=== PATIENT | female | born 1955 | race African-American/Black ===

== ENCOUNTER 2020-03-04 08:25 | Emergency (ER) | payer MEDICARE, OTHER, SELFPAY ==
[2020-03-04 08:40] VITALS: BP 140/85; PULSE 58; RESP 16; TEMP 35.6; O2SAT 100
--- NOTE | 2020-03-04 09:05 | ED.EAR ---
HPI - Ear Problem General Chief complaint: Ear Stated complaint: bilateral ear pain Time Seen by Provider: 03/04/20 08:50 Source: patient and RN notes reviewed Mode of arrival: ambulatory Limitations: no limitations History of Present Illness HPI Narrative: 63 year old female who presents to [facility] care with complaints of bilateral ear pain for the past week. Patient states that her left ear is the worse but both ears hurt inside and out. Patient denies any fever, chills or sweats states that she has been routinely checking her temperature since COVID started, no sinus drainage or stuffy nose, some intermittent headaches, rare sore throat stated. patient stated she thought that initially it was from ear wax so she tried some home remedies and then she put some ear wax removal drops in her ears on Saturday with no improvement in discomfort.Patient denies any bloody drainage from her ears, some yellowish drainage noted from her ears which is attributed to ear wax removal drops. Patient states no decrease in her hearing or any incidence of dizziness. MD Complaint: ear pain and ear discharge Location: bilateral Duration: constant Severity: moderate Relieving factors: ear drops Exacerbating factors: palpation Discharge from ear: Reports yes - clear (clear to light yellow) Associated symptoms ear: external ear tenderness and ear swelling Treatment prior to arrival: eardrops Related Data Home Medications Medication Instructions Recorded Confirmed amlodipine 5 mg PO DAILY 03/04/20 03/04/20 levothyroxine 50 mcg PO DAILY 03/04/20 03/04/20 nebivolol [Bystolic] 10 mg PO DAILY 03/04/20 03/04/20 rosuvastatin 10 mg PO DAILY 03/04/20 03/04/20 Allergies Allergy/AdvReac Type Severity Reaction Status Date / Time codeine Allergy Intermediate ANXIOUS Verified 03/04/20 08:46 AND NERVOUS Review of Systems Review of Systems: Narrative: CONSTITUTIONAL: Denies fever, chills, or sweats. EYES: Denies visual changes, redness, or discharge. ENT: Denies rhinorrhea, congestion,occasional sore throat, bilateral otalgia. CARDIOVASCULAR: Denies chest pain, palpitations, or edema. RESPIRATORY: Denies cough or dyspnea. GASTROINTESTINAL: Denies abdominal pain, nausea, vomiting, or diarrhea. GENITOURINARY: Denies dysuria or hematuria. SKIN: Denies rash or itching. MUSCULOSKELETAL: Denies back pain, joint pain, or myalgia. NEUROLOGIC: Denies headache, numbness, or weakness. PSYCHIATRIC: Denies anxiety or depression. All systems reviewed & are unremarkable except as noted in HPI and below PMFSH Past Medical History Medical History (Updated 03/04/20 @ 09:54 by Connie Bolanos NP) Anxiety and depression Arthritis GERD (gastroesophageal reflux disease) Hyperlipidemia Hypertension Hypothyroidism Sleep apnea Surgical History Surgical History (Updated 03/04/20 @ 09:53 by Connie Bolanos NP) H/O tubal ligation H/O: section History of total left knee replacement (TKR) History of total right knee replacement (TKR) Hx of cholecystectomy Hx of gastric bypass Hx of tonsillectomy Family History Family History Mother Hypertension Family history of mental disorder Family history of glaucoma Family history of arthritis Sibling Hypertension Family history of diabetes mellitus in first degree relative Family history of alcoholism Family history of liver disease Father Family history of malignant neoplasm Family history of lung cancer, Onset Age: 67 Other Carcinoma of colon Diabetes mellitus Family history of cardiovascular disease Family history of malignant neoplasm of cervix Family history of malignant neoplasm of male breast Family history of primary malignant neoplasm of liver Social History Social History (Updated 03/04/20 @ 09:45 by Connie Bolanos NP) Smoking status: Never smoker Alcohol intake: never Living arrangements: with family Gender id
--- NOTE | 2020-03-04 10:04 | PC.NURSE ---
called and requested rx to [facility]. stated initial pharmacy would not take insurance. aware field reimbursement manager will call in rx to requested pharmacy.
== END 2020-03-04 09:23 | disposition home or self-care (01) ==
PROVIDERS: Emergency Provider Registered Nurse
DX: H60.393 Other infective otitis externa, bilateral (principal); H65.02 Acute serous otitis media, left ear; M19.90 Unspecified osteoarthritis, unspecified site; K21.9 Gastro-esophageal reflux disease without esophagitis; E78.5 Hyperlipidemia, unspecified; I10 Essential (primary) hypertension; E03.9 Hypothyroidism, unspecified; G47.30 Sleep apnea, unspecified; Z96.653 Presence of artificial knee joint, bilateral; Z98.84 Bariatric surgery status
CPT/HCPCS: 99213; G0463

== ENCOUNTER 2024-04-11 09:09 | Outpatient (CLI) | payer MEDICARE, OTHER, SELFPAY ==
--- NOTE | ~2024-04-11 | US_ITS ---
EXAMINATION: US pelvic complete DATE: 04/11/2024 09:38 INDICATION: Leiomyoma of uterus, unspecified TECHNIQUE: Multiple transabdominal and endovaginal sonographic images of the pelvis were obtained. COMPARISON: CT abdomen pelvis 05/15/2013 FINDINGS: Uterus: 14.3 x 6.4 x 7.7 cm. Multiple hypoechoic masses, largest measuring 5.7 cm. Endometrial comple x partially obscured measures 3 mm. Right Ovary: Not visualized. Left Ovary: 2.8 x 1.2 x 2.6 cm. Vascular flow is present. No adnexal mass There is no free fluid in the pelvis. IMPRESSION: Uterine fibroids. Right ovary not visualized. Reviewed, dictated and finalized at location K.
== END 2024-04-11 09:10 | disposition home or self-care (01) ==
PROVIDERS: PCP Nurse Practitioner Women's Health; Visit Provider Nurse Practitioner Women's Health
DX: D25.9 Leiomyoma of uterus, unspecified (principal); R10.32 Left lower quadrant pain
CPT/HCPCS: 76856

== ENCOUNTER 2024-10-13 10:17 | Outpatient (CLI) | payer MEDICARE, OTHER, SELFPAY ==
--- OUTSIDE RECORDS SUMMARY | 2024-10-13 11:06 | XMS_ITS | Clinical Summary ---
Author Organization [facility] Address [address] [place] [address] Care Team Providers Care Starcher And Tenter Range Feeder Name Role Phone Deepika Connors MD Primary Care Provider [phone] [facility],non[facility] Affiliates and Associated Physician Practices is amultiple site organization consisting of ambulatory clinics and hospital sitesin [place], [place], [place] and [place]. This disclosure is being madepursuant to the Care Everywhere program and may not contain all information available regarding this patient. Last updated 18.[facility] Allergies Active Allergy Reactions Criticality Noted Date Comments Codeine Other 02/08/2024 tachycardia Social History Tobacco Use Types Packs/Day Years Used Date Smoking Tobacco: Never Assessed Comments Unknown Sex and Gender Information Value Date Recorded Sex Assigned at Not on file Legal Sex Female 7:59 PM REJECT OPENER Gender Identity Not on file Sexual Orientation Not on file Last Filed Vital Signs Vital Sign Reading Time Taken Comments Blood Pressure 154/83 02/08/2024 5:23 PM CDT Pulse 65 02/08/2024 5:23 PM CDT Temperature 36.7 C (98.1 F) 02/08/2024 6:28 PM CDT Respiratory Rate 18 02/08/2024 5:23 PM CDT Oxygen Saturation 99% 02/08/2024 5:23 PM CDT Inhaled Oxygen Concentration - - Weight 137 kg (302 lb) 02/08/2024 5:23 PM CDT Height 170.2 cm (5' 7 ) 02/08/2024 5:23 PM CDT Body Mass Index 47.3 02/08/2024 5:23 PM CDT Plan of Treatment Health Maintenance Due Date Last Done Comments COLOGUARD (AGES 45-75) - COLON CA SCREENING 1953 COLON MONITORING 1953 COLONOSCOPY - COLON CA SCREENING 1953 CT COLONOGRAPHY - COLON CA SCREENING 1953 Colorectal Cancer Screening 1953 FIT - COLON CA SCREENING 1953 FLEX SIG - COLON CA SCREENING 1953 MEDICARE AWV 12 MONTHS 1953 DTAP/TDAP/TD VACCINES (1 - Tdap) 1972 PNEUMOCOCCAL VACCINE 50+ (1 of 1 - PCV) 11/03/2003 ZOSTER VACCINE (1 of 2) 11/03/2003 Respiratory Syncytial Virus (RSV) Vaccine Pt: or over 60 yrs (1 - Risk 60-74 years 1-dose series) 2013 COVID-19 VACCINE ( season) 2024 09/07/2020, 08/10/2020 DEPRESSION SCREENING 07/01/2024 INFLUENZA VACCINE (Season Ended) 2025 04/12/2022, 04/22/2021, 04/04/2020, Additional history exists MAMMOGRAM 01/20/2026 01/21/2024, 12/30, 12/17/2022, Additional history exists LIPID TESTING 01/21/2029 01/22/2024 BONE DENSITY TESTING Completed 11/12/2023 HEPATITIS C SCREENING Completed 01/22/2024 HEPATITIS B VACCINE Aged Out No longe r eligible based on patient's age to complete this topic HIB VACCINE Aged Out No longer eligi ble based on patient's age to complete this topic HPV VACCINE Aged Out No longer eligi ble based on patient's age to complete this topic MENINGOCOCCAL (Group B) VACCINE SHARED DECISION-MAKING Aged Out No longer eligible based on patient's age to complete this topic MENINGOCOCCAL GROUPS A/C/Y/W VACCINE Aged Out No longer eligible based on patient's age to complete this topic Insurance MEDICARE [facility] Care Teams Starcher And Tenter Range Feeder Relationship Specialty Start Date End Date Deepika Connors MD [address] [place] [address] PCP - General Family Medicine 02/08/24
--- OUTSIDE RECORDS SUMMARY | 2024-10-13 11:06 | XMS_ITS | Encounter Summary ---
Author Organization [facility] Address [address] [place] [address] Care Team Providers Care Fabric And Textile Factory Worker Name Role Phone Deepika Connors MD Primary Care Provider [phone] Christian Talbot MD Unavailable [phone] Encounter Details Date Type Department Care Team (Latest Contact Info) Description 02/11/2018 Abstract [facility] , Sharon Harrison MD Social History Tobacco Use Types Packs/Day Years Used Date Smoking Tobacco: Never Smokeless Tobacco: Never Alcohol Use Standard Drinks/Week Comments No 0 (1 standard drink = 0.6 oz pur e alcohol) Comments Unknown Sex and Gender Information Value Date Recorded Sex Assigned at Female 07/21/2024 11:09 AM LION TRAINER Legal Sex Female 9:55 AM CDT Gender Identity Female 09/05/2021 11:16 AM LION TRAINER Sexual Orientation Straight 09/05/2021 11 :16 AM LION TRAINER documented as of this encounter Plan of Treatment Upcoming Encounters Date Type Department Care Team (Late st Contact Info) Description 2024 9:40 AM CDT Laboratory Only [facility] Family Medicine [address] [place] [phone] Deepika Connors MD [facility] [place] [address] 11/09/2024 10:00 AM CDT Office Visit [facility] Family Medicine - [place] [address] [place] [address] Deepika Connors MD [address] [place] [address] 01/19/2025 8:45 AM CDT Office Visit [facility] [address] [place] [address] Christian Talbot MD [address] [facility] [place] [address] documented as of this encounter Visit Diagnoses Not on filedocumented in this encounter Additional Health Concerns Infection Onset Date Last Indicated Resolved Time COVID-19 Rule Out 07/22/2020 07/22/2020 07/24/2020 3:20 AM LION TRAINER COVID-19 Rule Out 07/07/2021 07/07/2021 07/10/2021 2:50 PM LION TRAINER COVID-19 Confirmed 07/07/2021 07/07/2021 12:32 AM LION TRAINER documented as of this encounter Care Teams Fabric And Textile Factory Worker Relationship Specialty Start Date End Date Deepika Connors MD [facility] [place] [address] PCP - General FAMILY PRACTICE 01/09/18 Christian Talbot MD [facility]. [address] [place] [address] [place] Vice President Corporate Communications CARDIOVASCULAR DISEASE 01/09/18 documented as of this encounter
--- OUTSIDE RECORDS SUMMARY | 2024-10-13 11:06 | XMS_ITS | Encounter Summary ---
Author Organization [facility] Address [address] [place] [address] Care Team Providers Care Substation Maintenance Technician Name Role Phone Deepika Connors MD Primary Care Provider Christian Talbot MD Unavailable [phone] Encounter Details Date Type Department Care Team (Latest Contact Info) Description 03/14/2018 Abstract [facility] , Sharon Harrison MD Social History Tobacco Use Types Packs/Day Years Used Date Smoking Tobacco: Never Smokeless Tobacco: Never Alcohol Use Standard Drinks/Week Comments No 0 (1 standard drink = 0.6 oz pur e alcohol) Comments Unknown Sex and Gender Information Value Date Recorded Sex Assigned at Female 07/21/2024 11:09 AM CAPTAIN WAITER/WAITRESS Legal Sex Female 9:55 AM CDT Gender Identity Female 09/05/2021 11:16 AM CAPTAIN WAITER/WAITRESS Sexual Orientation Straight 09/05/2021 11 :16 AM CAPTAIN WAITER/WAITRESS documented as of this encounter Plan of Treatment Upcoming Encounters Date Type Department Care Team (Late st Contact Info) Description 2024 9:40 AM CDT Laboratory Only [facility] Family Medicine [address] [place] [place] [phone] Deepika Connors MD [facility] [place] [address] 11/09/2024 10:00 AM CDT Office Visit [facility] Family Medicine - [place] [address] [place] [address] Deepika Connors MD [address] [place] [address] 01/19/2025 8:45 AM CDT Office Visit [facility] [address] [place] [address] Christian Talbot MD [address] [facility] [address] [place] [address] documented as of this encounter Visit Diagnoses Not on filedocumented in this encounter Additional Health Concerns Infection Onset Date Last Indicated Resolved Time COVID-19 Rule Out 07/22/2020 07/22/2020 07/24/2020 3:20 AM CAPTAIN WAITER/WAITRESS COVID-19 Rule Out 07/07/2021 07/07/2021 07/10/2021 2:50 PM CAPTAIN WAITER/WAITRESS COVID-19 Confirmed 07/07/2021 07/07/2021 12:32 AM CAPTAIN WAITER/WAITRESS documented as of this encounter Care Teams Substation Maintenance Technician Relationship Specialty Start Date End Date Deepika Connors MD [facility] [place] [address] PCP - General FAMILY PRACTICE 01/09/18 Christian Talbot MD [facility]. [address] [place] [address] [place] Crane Operator CARDIOVASCULAR DISEASE 01/09/18 documented as of this encounter
--- OUTSIDE RECORDS SUMMARY | 2024-10-13 11:06 | XMS_ITS | Clinical Summary ---
Author Organization [facility] Address [facility] [place] [address] Care Team Providers Care Food Service Attendant Name Role Phone Deepika Connors MD Primary Care Provider [phone] Christian Talbot MD Unavailable [phone] Allergies Active Allergy Reactions Criticality Noted Date Comments Codeine Unknown 05/30/2022 Palpitations, increased HR and shakiness Medications Cholecalciferol (VITAMIN D-3) 5000 units Tab Take 1 tablet (5,000 Units total) by mouth daily. 30 tablet 018 Active Multiple Vitamin (DAILY VITAMIN) Tab Take 1 tablet by mouth daily. 018 Active aspirin EC 81 MG EC tablet Take 1 tablet (81 mg total) by mouth daily. 018 Active magnesium 250 MG tablet Take 1 tablet (250 mg total) by mouth daily. 020 Active omeprazole (PRILOSEC) 20 MG capsuleIndication s:Gastroesophagea l reflux disease without esophagitis Take 2 capsules (40 mg total) by mouth daily. 024 Active Additional Information Patient taking differently: 20 mgOral Daily,Will take another if needed, Reported on 08/10/2024 levothyroxine (SYNTHROID) 50 MCG tabletIndications :Hypothyroidism, unspecified type TAKE 1 TABLET(50 MCG) BY MOUTH EVERY MORNING 90 tablet 2 Active irbesartan (AVAPRO) 300 MG tabletIndications :Primary hypertension Take 1 tablet (300 mg total) by mouth daily. 90 tablet 2 024 Active citalopram (CELEXA) 20 MG tabletIndications :Mild major depression TAKE 1 TABLET(20 MG) BY MOUTH DAILY 90 tablet 1 024 Active amLODIPine (NORVASC) 10 MG tabletIndications :Primary hypertension TAKE 1 TABLET(10 MG) BY MOUTH DAILY 90 tablet 1 025 Active rosuvastatin (CRESTOR) 10 MG tabletIndications :Hyperlipidemia, unspecified hyperlipidemia type TAKE 1 TABLET BY MOUTH DAILY BEFORE A MEAL 90 tablet 1 025 Active carvedilol (COREG) 12.5 MG tablet TAKE 1 TABLET(12.5 MG) BY MOUTH TWICE DAILY 180 tablet 1 025 Active WEGOVY 1.7 mg/dose injection (PEN)Indications: Morbid obesity with BMI of 45.0-49.9, adult ([facility]),Prediab etes INJECT 1.7 MG UNDER THE SKIN ONCE A WEEK FOR WEIGHT LOSS 3 mL 2 025 Active rosuvastatin (CRESTOR) 10 MG tabletIndications :Hyperlipidemia, unspecified hyperlipidemia type TAKE 1 TABLET BY MOUTH DAILY BEFORE A MEAL 90 tablet 1 024 2024 Discontinued carvedilol (COREG) 12.5 MG tablet TAKE 1 TABLET(12.5 MG) BY MOUTH TWICE DAILY 180 tablet 1 024 2024 Discontinued semaglutide-weigh t management (WEGOVY) 1.7 mg/dose injection (PEN)Indications: Weight Loss Inject 1.7 mg into the skin once a week. Indications: Weight Loss 3 mL 2 025 2024 Discontinued Active Problems Problem Noted Date Diagnosed Date Morbid (severe) obesity due to excess calories 0 10/10/2022 Syncope 05/30/2022 Body mass index (BMI) 50.0-59.9, adult 2 Adhesive capsulitis of right shoulder 08/04/2019 PELON (obstructive sleep apnea) 02/09/2019 BRIDGES (dyspnea on exertion) 02/09/2019 Second hand tobacco smoke exposure 02/09/2019 Abdominal pain 04/22/2018 Sinus bradycardia 01/30/2018 Anxiety 01/08/2018 Thyroid activity decreased 01/07/2018 HLD (hyperlipidemia) 12/29/2017 GERD (gastroesophageal reflux disease) 8 Arthritis 12/25/2017 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 Hyperglycemia 10/13/2015 History of bariatric surgery 06/27/2015 Malabsorption (HHS/HCC) 06/27/2015 Weight gain 06/27/2015 Obesity 03/26/2011 Left sided chest pain Palpitations Dizziness Dyslipidemia Essential hypertension Resolved Problems Problem Noted Date Diagnosed Date Resolved Date Breast cancer screening 04/22/201803/01 Never smoked tobacco 03/29/2011 020 Encounters Date Type Department Care Team Description 08/10/2024 11:00 AM SUBCONTRACT ADMINISTRATOR Office Visit [address] [address] Deepika Connors MD Prediabetes; Hypertension; Obesity 08/10/2024 Travel 08/03/2024 9:00 AM SUBCONTRACT ADMINISTRATOR Laboratory Only [address] [address] Deepika Connors MD 08/03/2024 Travel 07/28/[address] [address] Deepika Connors MD Refill Request 07/21/2024 11:30 AM SUBCONTRACT ADMINISTRATOR Office Visit [facility] [address] [address] Liset Guy, DERMATOLOGY TECHNICIAN-C Hypertension (6mo) 07/21/2024 Travel from Last 3 Months Immunizations Immunization Administration Dates Next Due Fluzone 6 Months+ Quad (0.5 mL Prefilled Syringe) 04/04/2020,04/01/2019 Fluzone High Dose (IIV, trivalent, 0.5mL) 2023 Fluzone High Dose - >Age 65 (Prefilled Syringe) 03/30/2023,04/12/2022 Influenza (Generic) 04/16/2018,04/30/2017 Influenza Adult (Generic) 04/12/2022,04/22/2021, 04/16/2018 MODERNA COVID-19 (12+) MRNA, LNP-S, PF, 100 MCG/ 0.5 ML DOSE 09/07/2020,08/10/2020 PFIZER COVID-19 (12+) MRNA, LNP-S, PF, EMIGDIO-SUCROSE, 30 MCG/0.3 ML (COMIRNATY) 04/15/2024 Pneumococcal (Pneumovax 23) 04/04/2020 Pneumococcal (Prevnar 13) 04/01/2019 Shingrix 07/02/2022,05/01/2022 Tdap (Generic) 04/20/2022 Family History Medical History Relation Comments Heart Disease Father Decedes Lung Cancer Father Breast Cancer Mother Heart Disease Mother None Hypertension Mother Diabetes Sister Decedes Hypertension Sister Relation Status Comments Father (Age 67) Mother Alive Sister Social History Tobacco Use Types Packs/Day Years Used Date Smoking Tobacco: Never Smokeless Tobacco: Never Tobacco Cessation:Counseling Given: No Alcohol Use Standard Drinks/Week Comments Never 0 (1 standard drink = 0.6 oz pur e alcohol) PHQ-2 Answer Date Recorded Patient Health Questionnaire-2 Score 1 08/10/2024 Comments No Sex and Gender Information Value Date Recorded Sex Assigned at Female 07/21/2024 11:09 AM SUBCONTRACT ADMINISTRATOR Legal Sex Female 9:55 AM CDT Gender Identity Female 09/05/2021 11:16 AM SUBCONTRACT ADMINISTRATOR Sexual Orientation Straight 09/05/2021 11 :16 AM SUBCONTRACT ADMINISTRATOR Last Filed Vital Signs Vital Sign Reading Time Taken Comments Blood Pressure 130/72 08/10/2024 11:[address] Vásquez manual read Pulse 76 08/10/2024 11:02 AM SUBCONTRACT ADMINISTRATOR Temperature 36.6 C (97.9 F) 08/10/2024 11:02 AM SUBCONTRACT ADMINISTRATOR Respiratory Rate 24 08/10/2024 11:0 2 AM SUBCONTRACT ADMINISTRATOR Oxygen Saturation 98% 08/10/2024 11: 02 AM SUBCONTRACT ADMINISTRATOR Inhaled Oxygen Concentration - - Weight 133.6 kg (294 lb 9.6 oz) 08/10/2024 11:02 AM SUBCONTRACT ADMINISTRATOR Height 170.2 cm (5' 7 ) 08/10/2024 11:0 2 AM SUBCONTRACT ADMINISTRATOR verbal Body Mass Index 46.14 08/10/2024 11:02 AM SUBCONTRACT ADMINISTRATOR Plan of Treatment Upcoming Encounters Date Type Department Care Team (Late st Contact Info) Description 2024 9:40 AM CDT Laboratory Only [id number] [place] [address] Deepika Connors MD [address] [place], [place] [id number] 11/09/2024 10:00 AM CDT Office Visit [facility] [address] [place] [address] Deepika Connors MD [facility] [place] [address] 01/19/2025 8:45 AM CDT Office Visit [facility] [address] [place] [address] Christian Talbot MD [facility]. [facility] [address] [place] [address] Health Maintenance Due Date Last Done Comments RSV Immunization or 60+ Years (1 - Risk 60-74 years 1-dose series) 2013 Annual Medicare Wellness Visit 2018 COVID-19 Vaccine ( season) 2024 04/15/2024, 03/30/2023, 04/20/2022, Additional history exists Mammogram Screening 01/20/2026 01/21/2024, 12/17/2022, 10/17/2021 Colorectal Cancer Screening Colonoscopy (10 Years) 10/29/2028 10/29/2018, 10/29/2018, 10/29/2018 DTaP, Tdap and Td Vaccines (2 - Td or Tdap) 04/20/2032 04/20/2022 Pneumococcal Vaccine: 50+ Years Completed 04/04/2020, 04/01/2019 Zoster Vaccines Completed 07/02/2022, 05/01/2022 Dexa Scan (General) Completed 11/12/2023 Hepatitis C Completed 01/22/2024 PHQ-2 (Physician Cameron) Completed 08/10/2024 Meningococcal B Vaccine Aged Out No l onger eligible based on patient's age to complete this topic Meningococcal Vaccine Aged Out No tyrone paula eligible based on patient's age to complete this topic RSV Immunizations Under 20 Months Aged Out No longer eligible based on patient's age to complete this topic Medical Devices Implanted Type Area Inbound Call Center Representative Device Identifier Shelf Expiration Date Model / Serial / Lot Sj Implantable Loop Recorder- [id number] Implanted:08/2017 by Baron Campbell MD (Quantity not on file) Explanted:Qty: 1 on 10/29/2019 by Baron Campbell MD Implantable Loop Recorder [employer] [facility] [employer] [id number] / [id number] / Procedures Procedure Name Priority Date/Time Associated Diagnosis Comments HEMOGLOBIN, GLYCOSYLATED Routine 08/10/2024 Prediabetes COLLECT.CAPILLARY (FNGR,HEEL,EAR) Routine 08/10/2024 Prediabetes COMPREHENSIVE METABOLIC PANEL Routine 08/03/2024 8:49 AM SUBCONTRACT ADMINISTRATOR Primary hypertension Hyperlipidemia, unspecified hyperlipidemia type LIPID PANEL Routine 08/03/2024 8:49 AM SUBCONTRACT ADMINISTRATOR Hyperlipidemia, unspecified hyperlipidemia type TSH W/REFLEX Routine 08/03/2024 8:49 AM SUBCONTRACT ADMINISTRATOR Hyperlipidemia, unspecified hyperlipidemia type Hypothyroidism, unspecified type COLLECTION VENOUS BLOOD VENIPUNCTURE Routine 08/03/2024 Routine general medical examination at a health care facility HEPATITIS C ANTIBODY Routine 01/22/2024 8:54 AM CDT Encounter for hepatitis C screening test for low risk patient MG SCREENING W DIANE TIARRA DIGI Routine 01/21/2024 2:48 PM CDT Screening mammogram, encounter for BONE DENSITY/DEXA Routine 11/12/2023 9:2 4 AM CDT Postmenopausal COLONOSCOPY Routine 10/29/2018 9:11 AM CDT from Last 3 Months or Most Recently Relevant to Health Maintenance Results * A1C (BACK OFFICE) (08/10/2024) HGB A1C 5.7 % [facility] 08/10/2024 us Deepika Connors MD LABORATORY Final Result Performing Organization Address City/[facility]/ZIP Co de Phone Number [facility] [address] [place] [address], [place] [phone] * COLLECT.CAPILLARY (FNGR,HEEL,EAR) (08/10/2024) us Deepika Connors MD PROCEDURES-UNRESULTED Final Resu lt Performing Organization Address City/[facility]/ZIP Co de Phone Number [facility] * TSH W/REFLEX (08/03/2024 8:49 AM SUBCONTRACT ADMINISTRATOR) TSH 2.233 0.358 - 3.740 uIU/ML 08/03/2024 4:17 PM SUBCONTRACT ADMINISTRATOR [facility] 08/03/2024 8:49 AM SUBCONTRACT ADMINISTRATOR us Deepika Connors MD LABORATORY Final Result Performing Organization Address [facility] Co de Phone Number [facility] [address] [place] [address], [place] [phone] * (ABNORMAL) COMPREHENSIVE METABOLIC PANEL (08/03/2024 8:49 AM SUBCONTRACT ADMINISTRATOR) SODIUM S/P/B 144 136 - 145 MMOL/L 08/03/2024 4:17 PM SUBCONTRACT ADMINISTRATOR [facility] POTASSIUM S/P/B 3.5 3.5 - 5.1 MMOL/L 08/03/2024 4:17 PM SUBCONTRACT ADMINISTRATOR [facility] CHLORIDE S/P/B 106 98 - 107 MMOL/L 08/03/2024 4:17 PM SUBCONTRACT ADMINISTRATOR [facility] CO2 28.9 21 - 32 MMOL/L 08/03/2024 4:17 PM [facility] GLUCOSE 92 70 - 99 MG/DL 08/03/2024 4:17 PM [facility] BUN 15 7 - 18 MG/DL 08/03/2024 4:17 PM [facility] CREATININE S/P/B 0.83 0.55 - 1.02 MG/DL 08/03/2024 4:17 PM [facility] CALCIUM S/P/B 8.9 8.4 - 10.5 MG/DL 08/03/2024 4:17 PM [facility] BILIRUBIN TOTAL S/P/B 0.4 0.2 - 1.0 MG/DL 08/03/2024 4:17 PM [facility] ALKALINE PHOSPHATASE S/P/B 85 55 - 142 U/L 08/03/2024 4:17 PM [facility] AST 21 15 - 37 U/L 08/03/2024 4:17 PM [facility] ALT 21 14 - 59 U/L 08/03/2024 4:17 PM [facility] TOTAL PROTEIN S/P/B 6.7 6.4 - 8.2 G/DL 08/03/2024 4:17 PM [facility] ALBUMIN S/P/B 3.5 3.4 - 5.0 G/DL 08/03/2024 4:17 PM [facility] ANION GAP 9.1 5 - 15 MMOL/L 08/03/2024 4:17 PM [facility] Comment:REFERENCE RANGE NOT ESTABLISHED OSMOLALITY (CALC) 298 MOSM/KG 025 4:17 PM [facility] Comment:REFERENCE RANGE NOT ESTABLISHED GFR ESTIMATE 76(L) >90 ML/MIN/1. 73 M2 08/03/2024 4:17 PM [facility] GFR NOTES GFR REFERENCE S: 08/03/2024 4:17 PM [facility] Comment: THE ESTIMATED GFR IS CALCULATED USING THE 2020 CKD-EPI EQUATION. THE FOLLOWING CATEGORIES FOR GRADING RENAL FUNCTION ARE RECOMMENDED BY THE INTERNATIONAL SOCIETY OF NEPHROLOGY (KDIGO 2012 CLINICAL PRACTICE GUIDELINE). G1,NORMAL OR HIGH: >89 ml/min/1.73 m2 G2,MILDLY DECREASED: 60-89 ml/min/1.73 m2 G3A,MILDLY TO MODERATELY DECREASED: 45-59 ml/min/1.73 m2 G3B,MODERATELY TO SEVERELY DECREASED: 30-44 ml/min/1.73 m2 G4,SEVERELY DECREASED: 15-29 ml/min/1.73 m2 G5,KIDNEY FAILURE: <15 ml/min/1.73 m2 08/03/2024 8:49 AM SUBCONTRACT ADMINISTRATOR us Deepika Connors MD LABORATORY Final Result [facility] [address] [place] [address], * (ABNORMAL) LIPID PANEL (08/03/2024 8:49 AM SUBCONTRACT ADMINISTRATOR) CHOLESTEROL 129 <200 MG/DL 08/03/2024 4:17 PM [facility] TRIGLYCERIDES 43 <150 MG/DL 08/03/2024 4:17 PM [facility] HDL 85 >40 MG/DL 08/03/2024 4:17 PM [facility] LDL-C 35 <100 MG/DL 08/03/2024 4:17 PM [facility] VLDL CALCULATION 9 5 - 28 MG/DL 08/03/2024 4:17 PM [facility] CHOL/HDL RATIO 1.5 0.0 - 4.0 08/03/2024 4:17 PM [facility] LDL/HDL 0.4(L) 0.41 - 2.13 08/03/2024 4:17 PM [facility] NON HDL CHOLESTEROL 44 <140 MG/DL 08/03/2024 4:17 PM SUBCONTRACT ADMINISTRATOR [facility] 08/03/2024 8:49 AM SUBCONTRACT ADMINISTRATOR us Deepika Connors MD LABORATORY Final Result Performing Organization Address City/[facility] Co de Phone Number [facility] [address] [place] [address], [place] [phone] * COLLECTION VENOUS BLOOD VENIPUNCTURE (08/03/2024) us Deepika Connors MD PROCEDURES Final Result * HEPATITIS C ANTIBODY (01/22/2024 8:54 AM CDT) HEPATITIS C AB NON-REACTI VE NON-REACT MAHNAZ 01/22/2024 10:14 PM CDT [facility] Comment: ANTIBODIES TO HCV NOT DETECTED. DOES NOT EXCLUDE THE POSSIBILITY OF EXPOSURE TO HCV. 01/22/2024 8:54 AM CDT us Deepika Connors MD LABORATORY Final Result Performing Organization Address City/[facility] Co de Phone Number [facility] [address] [place] [address], [phone] * MG SCREENING W DIANE TIARRA DIGI (01/21/2024 2:48 PM CDT) Anatomical Region Laterality Modality Breast Bilateral Mammography 01/21/2024 4:08 PM CDT Impressions 01/21/2024 4:11 PM CDT ===== IMPRESSION: ===== 1. Stable mammographic appearance with no new findings to suggest malignancy in either breast. Assessment: ACR BI-RADS 2 - BENIGN FINDING(S) Recommendation: 1:Routine Screening Bilateral Comments: Ordered By: DEEPIKA CONNORS Interpreted By: Ketty Barrios, 01/21/2024 4:08 PM Narrative 01/21/2024 4:11 PM CDT EXAMINATION: Digital bilateral screening mammogram with 3-D tomosynthesis EXAM DATE/TIME: 01/21/2024 2:32 PM REASON FOR EXAM: Routine screening Mother with breast carcinoma age 85. COMPARISON: 10/17/2021. 12/17/2022 Technique: Digital screening mammography of both breasts was performed in addition to 3-D Tomosynthesis technique. This study was read with the assistance of a computer-aided detection system. Tissue density: There are scattered areas of fibroglandular density. Findings: There is no new focal asymmetry, dominant mass lesion, area of skin thickening, or cluster of suspicious appearing calcifications in either breast to suggest malignancy. us Deepika Connors MD MAMMO Final Result * BONE DENSITY/DEXA (11/12/2023 9:24 AM CDT) Anatomical Region Laterality Modality Bone Mammography 11/12/2023 8:24 PM CDT Impressions 11/12/2023 8:27 PM CDT IMPRESSION:===== The patient bone mineral density is Normal according to the World Health Organization (WHO) criteria. Referred By: DEEPIKA CONNORS Interpreted By: Juan Manuel Florence MD, 11/12/2023 8:24 PM Narrative 11/12/2023 8:27 PM CDT EXAMINATION: Bone Density Axial EXAM DATE/TIME: 11/12/2023 9:03 AM REASON FOR EXAM: Postmenopausal status COMPARISON: Although prior DEXA scan 04/09/2014 as listed, and no images or information is available from that study for comparison. FINDINGS: DEXA bone densitometry The bone mineral density (BMD) was determined by dual-energy x-ray absorptiometry, the results are as follows: AP Lumbar Spine L1 through L4 BMD Patient (GM/SQCM): 0.951 T-Score (Standard deviations from young adult peak bone density): -0.9 and a Z- Score of 0.5. osteoarthritis may falsely increase bone mineral density measured in the lumbar spine. Right femoral neck: BMD Patient (GM/SQCM): 0.771 T-Score (Standard deviations from young adult peak bone density): -0.7 and a Z- Score of 0.2. Total right hip: BMD Patient (GM/SQCM): 0.995 T-Score (Standard deviations from young adult peak bone density): 0.4 and a Z- Score of 0.9. 10 year fracture risk using FRAX, fracture risk assessment tool: Major osteoporotic fracture: 4.9 % Hip fracture: 0.5 % ===== Procedure Note Juan Manuel Florence MD - 11/12/2023 EXAMINATION: Bone Density Axial EXAM DATE/TIME: 11/12/2023 9:03 AM REASON FOR EXAM: Postmenopausal status COMPARISON: Although prior DEXA scan 04/09/2014 as listed, and no imagesor information is available from that study for comparison. FINDINGS: DEXA bone densitometry The bone mineral density (BMD) was determined bydual-energy x-ray absorptiometry, the results are as follows: AP Lumbar Spine L1 through L4 BMD Patient (GM/SQCM): 0.951 T-Score (Standard deviations from young adult peak bonedensity): -0.9 and a Z- Score of 0.5. osteoarthritis may falsely increasebone mineral density measured in the lumbar spine. Right femoral neck: BMD Patient (GM/SQCM): 0.771 T-Score (Standard deviations from young adult peak bonedensity): -0.7 and a Z- Score of 0.2. Total right hip: BMD Patient (GM/SQCM): 0.995 T-Score (Standard deviations from young adult peak bonedensity): 0.4 and a Z- Score of 0.9. 10 year fracture risk using FRAX, fracture risk assessment tool: Major osteoporotic fracture: 4.9 % Hip fracture: 0.5 % ===== IMPRESSION:===== The patient bone mineral density is Normal according to the World Health Organization (WHO) criteria. Referred By: DEEPIKA ELLEBY Interpreted By: Juan Manuel Florence MD, 11/12/2023 8:24 PM us Deepika Connors MD DEXA Final Result * COLONOSCOPY (10/29/2018) us Documents Scanned SCANNING Final Result [facility] [address] [address] from Last 3 Months or Most Recently Relevant to Health Maintenance Insurance MEDICARE [facility] MEDICARE [employer] Care Teams Food Service Attendant Relationship Specialty Start Date End Date Deepika Connors MD [address] [place] [address] PCP - General FAMILY PRACTICE 01/09/18 Christian Talbot MD [facility]. [facility] [address] [place] [address] [place] Biology Specimen Technician CARDIOVASCULAR DISEASE 01/09/18
[2024-10-13 11:12] LABS: Alanine Aminotransferase 19 U/L (6-35); Alkaline Phosphatase 81 U/L (38-126); Anion Gap 8 mmol/L (4-12); Aspartate Amino Transferase 36 U/L (14-36); Bilirubin,Total 0.4 mg/dL (0.2-1.3); Blood Urea Nitrogen 10 mg/dL (7-17); Calcium 9.2 mg/dL (8.4-10.2); Carbon Dioxide 28 mmol/L (22-30); Chloride 104 mmol/L (98-107); Estimated Glomerular Filt Rate > 60; Glucose 96 mg/dL (65-110); Potassium 3.9 mmol/L (3.4-5.0); Sodium 140 mmol/L (137-145)
[2024-10-13 11:35] LABS: Free T4 Free Thyroxine 0.76 ng/dL (0.78-2.19)
[2024-10-15 09:28] LABS: Thyroid Peroxidase Antibodies 50 IU/mL (<9)
== END 2024-10-13 10:18 | disposition home or self-care (01) ==
PROVIDERS: PCP Nurse Practitioner Women's Health; Visit Provider Internal Medicine
DX: E78.5 Hyperlipidemia, unspecified (principal); E03.9 Hypothyroidism, unspecified; I10 Essential (primary) hypertension; G47.30 Sleep apnea, unspecified
CPT/HCPCS: 36415; 80053; 82530; 84439; 84443; 86376

== ENCOUNTER 2024-10-26 12:03 | Outpatient (CLI) | payer MEDICARE, OTHER, SELFPAY ==
--- OUTSIDE RECORDS SUMMARY | 2024-10-26 13:56 | XMS_ITS | Encounter Summary ---
Author Organization [facility] Address [address] [place] [address] Care Team Providers Care Redevelopment Specialist Name Role Phone Deepika Connors MD Primary Care Provider [phone] Christian Talbot MD Unavailable [phone] Reason for Visit * Reason Onset Date Comments Lab Draw 10/26/2024 Encounter Details Date Type Department Care Team (Late st Contact Info) Description 10/26/2024 Telephone [facility] Family Medicine [facility] [address] [place] [address] Deepika Connors MD [address] [place] [address] Lab Draw Social History Tobacco Use Types Packs/Day Years Used Date Smoking Tobacco: Never Smokeless Tobacco: Never Alcohol Use Standard Drinks/Week Comments Never 0 (1 standard drink = 0.6 oz pur e alcohol) PHQ-2 Answer Date Recorded Patient Health Questionnaire-2 Score 1 08/10/2024 Comments No Sex and Gender Information Value Date Recorded Sex Assigned at Female 07/21/2024 11:09 AM LICENSED MARINE ENGINEER Legal Sex Female 9:55 AM CDT Gender Identity Female 09/05/2021 11:16 AM LICENSED MARINE ENGINEER Sexual Orientation Straight 09/05/2021 11 :16 AM LICENSED MARINE ENGINEER documented as of this encounter Progress Notes * Ling Muniz MA - 10/26/2024 1:24 PM CDT Called pt to f/u to make sure lab appt and f/u was scheduled * Ling Muniz MA - 10/26/2024 1:23 PM CDT ----- Message from Deepika Connors MD sent at 10/23/2024 12:40 PM CDT ----- ----- Message ----- From: Taisha Vazquez MA Sent: 10/22/2024 2:47 PM CDT To: Deepika Connors MD ----- Message from Taisha Vazquez MA sent at 10/22/2024 2:47 PM CDT ----- ----- Message ----- From: Eleazar Ghosh Sent: 10/22/2024 2:38 PM CDT To: Deepika Cao Nurse ----- Message from Eleazar Ghosh sent at 10/22/2024 2:38 PM CDT ----- documented in this encounter Plan of Treatment Upcoming Encounters Date Type Department Care Team (Late st Contact Info) Description 2024 9:40 AM CDT Laboratory Only [address] [address] Deepika Connors MD [facility] [place] [address] 11/09/2024 10:00 AM CDT Office Visit [address] [place] [address] Deepika Connors MD [facility] [place] [address] 01/19/2025 8:45 AM CDT Office Visit [facility] [address] [place] [address] Christian Talbot MD [facility]. [facility] [address] [place] [address] documented as of this encounter Visit Diagnoses Not on filedocumented in this encounter Additional Health Concerns Assessment Noted Time PHQ-9 Depression Total Score: 2 08/10/19 25 11:01 AM LICENSED MARINE ENGINEER documented as of this encounter Care Teams Redevelopment Specialist Relationship Specialty Start Date End Date Deepika Connors MD [address] [place] [address] PCP - General FAMILY PRACTICE 01/09/18 Christian Talbot MD [facility]. [facility] [address] [place] [address] [facility] CARDIOVASCULAR DISEASE 01/09/18 documented as of this encounter
--- OUTSIDE RECORDS SUMMARY | 2024-10-26 13:56 | XMS_ITS | Encounter Summary ---
Author Organization [facility] Address [address] [place] [address] Care Team Providers Care Awning Assembler Name Role Phone Deepika Connors MD Primary Care Provider [phone] Christian Talbot MD Unavailable [phone] Encounter Details Date Type Department Care Team (Latest Contact Info) Description 03/14/2018 Abstract [facility] , Sharon Harrison MD Social History Tobacco Use Types Packs/Day Years Used Date Smoking Tobacco: Never Smokeless Tobacco: Never Alcohol Use Standard Drinks/Week Comments No 0 (1 standard drink = 0.6 oz pur e alcohol) Comments Unknown Sex and Gender Information Value Date Recorded Sex Assigned at Female 07/21/2024 11:09 AM BEAMER OPERATOR Legal Sex Female 9:55 AM CDT Gender Identity Female 09/05/2021 11:16 AM BEAMER OPERATOR Sexual Orientation Straight 09/05/2021 11 :16 AM BEAMER OPERATOR documented as of this encounter Plan of Treatment Upcoming Encounters Date Type Department Care Team (Late st Contact Info) Description 2024 9:40 AM CDT Laboratory Only [facility] Family Medicine [address] [place] [phone] Deepika Connors MD [facility] [place] [address] 11/09/2024 10:00 AM CDT Office Visit [facility] Family Medicine - [place] [address] [place] [address] Deepika Connors MD [address] [place] [address] 01/19/2025 8:45 AM CDT Office Visit [place] [facility] [address] [facility] [address] [address], [address] [place] [address] Christian Talbot MD [facility] [address] [place] [address] documented as of this encounter Visit Diagnoses Not on filedocumented in this encounter Additional Health Concerns Infection Onset Date Last Indicated Resolved Time COVID-19 Rule Out 07/22/2020 07/22/2020 07/24/2020 3:20 AM BEAMER OPERATOR COVID-19 Rule Out 07/07/2021 07/07/2021 07/10/2021 2:50 PM BEAMER OPERATOR COVID-19 Confirmed 07/07/2021 07/07/2021 12:32 AM BEAMER OPERATOR documented as of this encounter Care Teams Awning Assembler Relationship Specialty Start Date End Date Deepika Connors MD [facility] [place] [address] PCP - General FAMILY PRACTICE 01/09/18 Christian Talbot MD Three [facility]. [address] [place] [address] [place] Shuttlecock Assembler CARDIOVASCULAR DISEASE 01/09/18 documented as of this encounter
--- OUTSIDE RECORDS SUMMARY | 2024-10-26 13:56 | XMS_ITS | Clinical Summary ---
Author Organization [facility] Address [address] [facility] [place] [address] Care Team Providers Care Optical Engineering Manager Name Role Phone Deepika Connors MD Primary Care Provider [phone] Source Comments [facility] Affiliates and Associated Physician Practices is amultiple site organization consisting of ambulatory clinics and hospital sitesin [place], [place] and [place]. This disclosure is being madepursuant to the Care Everywhere program and may not contain all information available regarding this patient. Last updated 18.[facility] Allergies Active Allergy Reactions Criticality Noted Date Comments Codeine Other 02/08/2024 tachycardia Social History Tobacco Use Types Packs/Day Years Used Date Smoking Tobacco: Never Assessed Comments Unknown Sex and Gender Information Value Date Recorded Sex Assigned at Not on file Legal Sex Female 7:59 PM LEATHER PIECE INSPECTOR Gender Identity Not on file Sexual Orientation [...] age to complete this topic Insurance MEDICARE [facility] Care Teams Optical Engineering Manager Relationship Specialty Start Date End Date Deepika Connors MD [address] [place] [address] PCP - General Family Medicine 02/08/24
--- OUTSIDE RECORDS SUMMARY | 2024-10-26 13:56 | XMS_ITS | Encounter Summary ---
Author Organization [facility] Address [address] [place] [address] Care Team Providers Care Responder Name Role Phone Deepika Connors MD Primary Care Provider [phone] Christian Talbot MD Unavailable [phone] Encounter Details Date Type Department Care Team (Latest Contact Info) Description 02/11/2018 Abstract [facility] Medical [facility] , Sharon Harrison MD Social History Tobacco Use Types Packs/Day Years Used Date Smoking Tobacco: Never Smokeless Tobacco: Never Alcohol Use Standard Drinks/Week Comments No 0 (1 standard drink = 0.6 oz pur e alcohol) Comments Unknown Sex and Gender Information Value Date Recorded Sex Assigned at Female 07/21/2024 11:09 AM CHILDREN'S AUTHOR Legal Sex Female 9:55 AM CDT Gender Identity Female 09/05/2021 11:16 AM CHILDREN'S AUTHOR Sexual Orientation Straight 09/05/2021 11 :16 AM CHILDREN'S AUTHOR documented as of this encounter Plan of Treatment Upcoming Encounters Date Type Department Care Team (Late st Contact Info) Description 2024 9:40 AM CDT Laboratory Only [facility] Medical Group Family Medicine [address] [place] [phone] Deepika Connors MD [facility] [place] [address] 11/09/2024 10:00 AM CDT Office Visit [facility] Medical [facility] Family Medicine - [place] [address] [place] [address] Deepika Connors MD [address] [place] [address] 01/19/2025 8:45 AM CDT Office Visit [place] [facility] [address] [facility] [address], [address] [place] [address] Christian Tal[facility] MD [facility] [address] [place] [address] documented as of this encounter Visit Diagnoses Not on filedocumented in this encounter Additional Health Concerns Infection Onset Date Last Indicated Resolved Time COVID-19 Rule Out 07/22/2020 07/22/2020 07/24/2020 3:20 AM CHILDREN'S AUTHOR COVID-19 Rule Out 07/07/2021 07/07/2021 07/10/2021 2:50 PM CHILDREN'S AUTHOR COVID-19 Confirmed 07/07/2021 07/07/2021 12:32 AM CHILDREN'S AUTHOR documented as of this encounter Care Teams Responder Relationship Specialty Start Date End Date Deepika Connors MD [facility] [place] [address] PCP - General FAMILY PRACTICE 01/09/18 Christian Talbot MD Three [facility]. [address] [place] [address] [place] School Examiner CARDIOVASCULAR DISEASE 01/09/18 documented as of this encounter
--- OUTSIDE RECORDS SUMMARY | 2024-10-26 13:56 | XMS_ITS | Encounter Summary ---
Author Organization [facility] Address [address] [place] [address] Care Team Providers Care Tourist Information Assistant Name Role Phone Deepika Connors MD Primary Care Provider [phone] Christian Talbot MD Unavailable [phone] Encounter Details Date Type Department Care Team (Late st Contact Info) Description 10/23/2024 Results Follow-Up [facility] Family Medicine [facility] [address] [place] [address] Deepika Connors MD [address] [place] [address] A1C (BACK OFFICE) Social History Tobacco Use Types Packs/Day Years Used Date Smoking Tobacco: Never Smokeless Tobacco: Never Alcohol Use Standard Drinks/Week Comments Never 0 (1 standard drink = 0.6 oz pur e alcohol) PHQ-2 Answer Date Recorded Patient Health Questionnaire-2 Score 1 08/10/2024 Comments No Sex and Gender Information Value Date Recorded Sex Assigned at Female 07/21/2024 11:09 AM SENIOR SECURITY ARCHITECT Legal Sex Female 9:55 AM CDT Gender Identity Female 09/05/2021 11:16 AM SENIOR SECURITY ARCHITECT Sexual Orientation Straight 09/05/2021 11 :16 AM SENIOR SECURITY ARCHITECT documented as of this encounter Progress Notes * Deepika Connors MD - 10/23/2024 12:30 PM CDT Discussed results with patient and plan going forward in clinic. documented in this encounter Plan of Treatment Upcoming Encounters Date Type Department Care Team (Late st Contact Info) Description 2024 9:40 AM CDT Laboratory Only [address] [address] Deepika Connors MD [address] [place] [phone] 11/09/2024 10:00 AM CDT Office Visit [address] [address] Deepika Connors MD [address] [place] [phone] 01/19/2025 8:45 AM CDT Office Visit [place] [facility] [address] [facility] [address] [place], [place] [phone] Christian Talbot MD [facility] [address] [place], [place] [phone] documented as of this encounter Visit Diagnoses Not on filedocumented in this encounter Additional Health Concerns Assessment Noted Time PHQ-9 Depression Total Score: 2 08/10/19 25 11:01 AM SENIOR SECURITY ARCHITECT documented as of this encounter Care Teams Tourist Information Assistant Relationship Specialty Start Date End Date Deepika Connors MD [address] [place] [address], [place] [phone] PCP - General FAMILY PRACTICE 01/09/18 Christian Talbot MD Three [facility] [address] [place] [address] Yasir Paralegal Instructor CARDIOVASCULAR DISEASE 01/09/18 documented as of this encounter
--- OUTSIDE RECORDS SUMMARY | 2024-10-26 13:56 | XMS_ITS | Clinical Summary ---
Author Organization [facility] Address [facility] [place] [address] Care Team Providers Care Furnace Installer Name Role Phone Deepika Connors MD Primary Care Provider [phone] Christian Talbot MD Unavailable [phone] Allergies Active Allergy Reactions Criticality Noted [...] TWICE DAILY 180 tablet 1 025 Active semaglutide-weigh t management (WEGOVY) 2.4 mg/dose injection (PEN)Indications: Weight Loss Inject 2.4 mg into the skin once a week. Indications: Weight Loss 3 mL 2 025 Active semaglutide-weigh t management (WEGOVY) 1.7 mg/dose injection (PEN)Indications: Weight Loss Inject 1.7 mg into the skin once a week. Indications: Weight Loss 3 mL 2 025 2024 Discontinued WEGOVY 1.7 mg/dose injection (PEN)Indications: Morbid obesity with BMI of 45.0-49.9, adult ([facility]),Prediab etes INJECT 1.7 MG UNDER THE SKIN ONCE A WEEK FOR WEIGHT LOSS 3 mL 2 025 2024 Discontinued Active [...] Encounters Date Type Department Care Team Description 10/26/[address] [address] Deepika Connors MD Lab Draw 10/23/2024 Results Follow-Up [address] [address] Deepika Connors MD A1C (BACK OFFICE) 10/22/[address] [address] Deepika Connors MD Medication 08/10/2024 11:00 AM DRY MOP MAKER Office Visit [address] [address] Deepika Connors MD Prediabetes; Hypertension; Obesity 08/10/2024 Travel 08/03/2024 9:00 AM DRY MOP MAKER Laboratory Only [address] [address] Deepika Connors MD 08/03/2024 Travel 07/28/[address] [address] Deepika Connors MD Refill Request from Last 3 Months Immunizations Immunization Administration [...] Sex Assigned at Female 07/21/2024 11:09 AM DRY MOP MAKER Legal Sex Female 9:55 AM CDT Gender Identity Female 09/05/2021 11:16 AM DRY MOP MAKER Sexual Orientation Straight 09/05/2021 11 :16 AM DRY MOP MAKER Last Filed Vital Signs Vital Sign Reading Time Taken Comments Blood Pressure 130/72 08/10/2024 11:[address] Liang's manual read Pulse 76 08/10/2024 11:02 AM DRY MOP MAKER Temperature 36.6 C (97.9 F) 08/10/2024 11:02 AM DRY MOP MAKER Respiratory Rate 24 08/10/2024 11:0 2 AM DRY MOP MAKER Oxygen Saturation 98% 08/10/2024 11: 02 AM DRY MOP MAKER Inhaled Oxygen Concentration - - Weight 133.6 kg (294 lb 9.6 oz) 08/10/2024 11:02 AM DRY MOP MAKER Height 170.2 cm (5' 7 ) 08/10/2024 11:0 2 AM DRY MOP MAKER verbal Body Mass Index 46.14 08/10/2024 11:02 AM DRY MOP MAKER Plan of Treatment Upcoming Encounters Date Type Department Care Team (Late st Contact Info) Description 2024 9:40 AM CDT Laboratory Only [address] [phone] Deepika Connors MD [address] [place] [address] 11/09/2024 10:00 AM CDT Office Visit [address] [address] Deepika Connors MD [address] [place] [phone] 01/19/2025 8:45 AM CDT Office Visit [place] [facility] THREE [facility] [place] [address] [place], [place] [phone] Christian Talbot MD [facility]. [facility] [address] [place], [place] [phone] Health Maintenance Due Date Last Done Comments [...] 11/12/2023 Hepatitis C Completed 01/22/2024 PHQ-2 (Physician [place]) Completed 08/10/2024 Meningococcal B Vaccine Aged Out No l onger eligible based on patient's age to complete this topic Meningococcal Vaccine Aged Out No tyrone paula eligible based on patient's age to complete this topic RSV Immunizations Under 20 Months Aged Out No longer eligible based on patient's age to complete this topic Medical Devices Implanted Type Area Mainspring Strip Inspector Device Identifier Shelf Expiration Date Model / Serial / Lot Sj Implantable Loop Recorder- [id number] Implanted:08/2017 by Baron Campbell MD (Quantity not on file) Explanted:Qty: 1 on 10/29/2019 by Baron Campbell MD Implantable Loop Recorder [employer] DIV [employer] [id number] / [id number] / Procedures Procedure Name Priority Date/Time Associated Diagnosis Comments HEMOGLOBIN, GLYCOSYLATED Routine 08/10/2024 Prediabetes COLLECT.CAPILLARY (FNGR,HEEL,EAR) Routine 08/10/2024 Prediabetes COMPREHENSIVE METABOLIC PANEL Routine 08/03/2024 8:49 AM DRY MOP MAKER Primary hypertension Hyperlipidemia, unspecified hyperlipidemia type LIPID PANEL Routine 08/03/2024 8:49 AM DRY MOP MAKER Hyperlipidemia, unspecified hyperlipidemia type TSH W/REFLEX Routine 08/03/2024 8:49 AM DRY MOP MAKER Hyperlipidemia, unspecified hyperlipidemia type Hypothyroidism, unspecified type [...] (BACK OFFICE) (08/10/2024) HGB A1C 5.7 % SAUD HARSH SANCHEZ 08/10/2024 us Deepika Connors MD LABORATORY Final Result [facility] [address] [place] [address], [place] [phone] * COLLECT.CAPILLARY (FNGR,HEEL,EAR) (08/10/2024) us Deepika Connors MD PROCEDURES-UNRESULTED Final Resu lt [facility] * TSH W/REFLEX (08/03/2024 8:49 AM DRY MOP MAKER) Pathologist [facility] TSH 2.233 0.358 - 3.740 uIU/ML 08/03/2024 4:17 PM DRY MOP MAKER [facility] 08/03/2024 8:49 AM DRY MOP MAKER us Deepika Connors MD LABORATORY Final Result Performing Organization Address City/[facility]/ZIP Co de Phone Number [facility] [place] [address] [place] [address], [place] [phone] * (ABNORMAL) COMPREHENSIVE METABOLIC PANEL (08/03/2024 8:49 AM DRY MOP MAKER) Pathologist [facility] SODIUM S/P/B 144 136 - 145 MMOL/L 08/03/2024 4:17 PM DRY MOP MAKER [facility] [place] POTASSIUM S/P/B 3.5 3.5 - 5.1 MMOL/L 08/03/2024 4:17 PM [facility] CHLORIDE S/P/B 106 98 - 107 MMOL/L 08/03/2024 4:17 PM [facility] CO2 28.9 21 - 32 MMOL/L 08/03/2024 4:17 PM [facility] GLUCOSE 92 70 - 99 MG/DL 08/03/2024 4:17 PM [facility] BUN 15 7 - 18 MG/DL 08/03/2024 4:17 PM [facility] CREATININE S/P/B 0.83 0.55 - 1.02 MG/DL 08/03/2024 4:17 PM [facility] CALCIUM S/P/B 8.9 8.4 - 10.5 MG/DL 08/03/2024 4:17 PM [facility] BILIRUBIN TOTAL S/P/B 0.4 0.2 - 1.0 MG/DL 08/03/2024 4:17 PM [facility] ALKALINE PHOSPHATASE S/P/B 85 55 - 142 U/L 08/03/2024 4:17 PM [facility] AST 21 15 - 37 U/L 08/03/2024 4:17 PM [facility] ALT 21 14 - 59 U/L 08/03/2024 4:17 PM [facility] TOTAL PROTEIN S/P/B 6.7 6.4 - 8.2 G/DL 08/03/2024 4:17 PM [facility] ALBUMIN S/P/B 3.5 3.4 - 5.0 G/DL 08/03/2024 4:17 PM [facility] ANION GAP 9.1 5 - 15 MMOL/L 08/03/2024 4:17 PM [facility] Comment:REFERENCE RANGE NOT ESTABLISHED OSMOLALITY (CALC) 298 MOSM/KG 025 4:17 PM [facility] Comment:REFERENCE RANGE NOT ESTABLISHED GFR ESTIMATE 76(L) >90 ML/MIN/1. 73 M2 08/03/2024 4:17 PM DRY MOP MAKER [facility] GFR NOTES GFR REFERENCE S: 08/03/2024 4:17 PM DRY MOP MAKER [facility] [place] Comment: THE ESTIMATED GFR IS CALCULATED USING [...] FAILURE: <15 ml/min/1.73 m2 08/03/2024 8:49 AM DRY MOP MAKER us Deepika Connors MD LABORATORY Final Result [facility] [address] [place] [address], * (ABNORMAL) LIPID PANEL (08/03/2024 8:49 AM DRY MOP MAKER) CHOLESTEROL 129 <200 MG/DL 08/03/2024 4:17 PM DRY MOP MAKER [facility] TRIGLYCERIDES 43 <150 MG/DL 08/03/2024 4:17 PM [facility] HDL 85 >40 MG/DL 08/03/2024 4:17 PM [facility] LDL-C 35 <100 MG/DL 08/03/2024 4:17 PM DRY MOP MAKER [facility] VLDL CALCULATION 9 5 - 28 MG/DL 08/03/2024 4:17 PM [facility] CHOL/HDL RATIO 1.5 0.0 - 4.0 08/03/2024 4:17 PM DRY MOP MAKER [facility] LDL/HDL 0.4(L) 0.41 - 2.13 08/03/2024 4:17 PM DRY MOP MAKER [facility] NON HDL CHOLESTEROL 44 <140 MG/DL 08/03/2024 4:17 PM DRY MOP MAKER [facility] 08/03/2024 8:49 AM DRY MOP MAKER us Deepika Connors MD LABORATORY Final Result Performing Organization Address City/[facility] Co de Phone Number [facility] [address] [place] [address], [place] [phone] * COLLECTION VENOUS BLOOD VENIPUNCTURE (08/03/2024) us Deepika Connors MD PROCEDURES Final Result * HEPATITIS C ANTIBODY (01/22/2024 8:54 AM CDT) HEPATITIS C AB NON-REACTI VE NON-REACT MAHNAZ 01/22/2024 10:14 PM CDT [facility] Comment: ANTIBODIES TO HCV NOT DETECTED. DOES NOT EXCLUDE THE POSSIBILITY OF EXPOSURE TO HCV. 01/22/2024 8:54 AM CDT us Deepika Connors MD LABORATORY Final Result Performing Organization Address City/[facility]/ZIP Co de Phone Number [facility] [address] [place] [address], [place] [phone] * MG SCREENING W DIANE TIARRA DIGI [...] calcifications in either breast to suggest malignancy. Deepika Connors MD MAMMO Final Result * [...] us Documents Scanned SCANNING Final Result [facility] [address] [address] from Last 3 Months or Most Recently Relevant to Health Maintenance Insurance MEDICARE [facility] [employer] MEDICARE [facility] Care Teams Furnace Installer Relationship Specialty Start Date End Date Deepika Connors MD [address] [place] [address] PCP - General FAMILY PRACTICE 01/09/18 Christian Talbot MD [facility]. [address] [address] Yasir Sandblasting Supervisor CARDIOVASCULAR DISEASE 01/09/18
[2024-10-28 02:00] LABS: FSH 85.4 mIU/mL; Prolactin 4.1 ng/mL
== END 2024-10-26 12:04 | disposition home or self-care (01) ==
LOC: ANHLAB 12:11
PROVIDERS: Visit Provider Internal Medicine
DX: E03.9 Hypothyroidism, unspecified (principal)
CPT/HCPCS: 36415; 83001; 83002; 84146; 84305

== ENCOUNTER 2024-10-28 08:09 | Outpatient (CLI) | payer MEDICARE, OTHER, SELFPAY ==
--- OUTSIDE RECORDS SUMMARY | 2024-10-28 08:12 | XMS_ITS | Encounter Summary ---
Author Organization [facility] Address [address] [place] [address] Care Team Providers Care Senior Brand Manager Name Role Phone Deepika Connors MD Primary Care Provider [phone] Christian Talbot MD Unavailable [phone] Encounter Details Date Type Department Care Team (Late st Contact Info) Description 10/23/2024 Results Follow-Up [facility] Medical Group Family Medicine [facility] [address] [place] [address] Deepika Connors MD [address] [place] [address] A1C (BACK OFFICE) Social History Tobacco Use Types Packs/Day Years Used Date Smoking Tobacco: Never Smokeless Tobacco: Never Alcohol Use Standard Drinks/Week Comments Never 0 (1 standard drink = 0.6 oz pur e alcohol) PHQ-2 Answer Date Recorded Patient Health Questionnaire-2 Score 1 08/10/2024 Comments No Sex and Gender Information Value Date Recorded Sex Assigned at Female 07/21/2024 11:09 AM BATTERY TESTER Legal Sex Female 9:55 AM CDT Gender Identity Female 09/05/2021 11:16 AM BATTERY TESTER Sexual Orientation Straight 09/05/2021 11 :16 AM BATTERY TESTER documented as of this encounter Progress Notes * Deepika Connors MD - 10/23/2024 12:30 PM CDT Discussed results with patient and plan going forward in clinic. documented in this encounter Plan of Treatment Upcoming Encounters Date Type Department Care Team (Late st Contact Info) Description 2024 9:40 AM CDT Laboratory Only [address] [address] Deepika Connors MD [address] [place] [phone] 11/09/2024 10:00 AM CDT Office Visit [address] [address] Deepika Connors MD [address] [place] [phone] 01/19/2025 8:45 AM CDT Office Visit [place] [facility] [address] [place], [place] [phone] Christian [facility] [address] [place], [place] [phone] documented as of this encounter Visit Diagnoses Not on filedocumented in this encounter Additional Health Concerns Assessment Noted Time PHQ-9 Depression Total Score: 2 08/10/19 25 11:01 AM BATTERY TESTER documented as of this encounter Care Teams Senior Brand Manager Relationship Specialty Start Date End Date Deepika Connors MD [address] [place] [address], [place] [phone] PCP - General FAMILY PRACTICE 01/09/18 Christian Talbot MD [facility] [address] [place] [address] Yasir Cheese Cutter CARDIOVASCULAR DISEASE 01/09/18 documented as of this encounter
--- OUTSIDE RECORDS SUMMARY | 2024-10-28 08:12 | XMS_ITS | Clinical Summary ---
Author Organization [facility] Address [facility] [place] [address] Care Team Providers Care Tail Trimmer Name Role Phone Deepika Connors MD Primary Care Provider [phone] Christian Talbot MD Unavailable [phone] Allergies Active Allergy Reactions Criticality Noted [...] Morbid obesity with BMI of 45.0-49.9, adult ([facility]),Prediab etes INJECT 1.7 MG UNDER THE SKIN [...] Type Department Care Team Description 10/26/[address] [address] Deepika Connors MD Lab Draw 10/23/2024 Results Follow-Up [address] [address] Deepika Connors MD A1C (BACK OFFICE) 10/22/[address] [address] Deepika Connors MD Medication 08/10/2024 11:00 AM MECHANICAL DESIGNER Office Visit [address] [address] Deepika Connors MD Prediabetes; Hypertension; Obesity 08/10/2024 Travel 08/03/2024 9:00 AM MECHANICAL DESIGNER Laboratory Only [address] [address] Deepika Connors MD 08/03/2024 Travel from Last 3 Months Immunizations Immunization [...] Sex Assigned at Female 07/21/2024 11:09 AM MECHANICAL DESIGNER Legal Sex Female 9:55 AM CDT Gender Identity Female 09/05/2021 11:16 AM MECHANICAL DESIGNER Sexual Orientation Straight 09/05/2021 11 :16 AM MECHANICAL DESIGNER Last Filed Vital Signs Vital Sign Reading Time Taken Comments Blood Pressure 130/72 08/10/2024 11:[address] Vásquez manual read Pulse 76 08/10/2024 11:02 AM MECHANICAL DESIGNER Temperature 36.6 C (97.9 F) 08/10/2024 11:02 AM MECHANICAL DESIGNER Respiratory Rate 24 08/10/2024 11:0 2 AM MECHANICAL DESIGNER Oxygen Saturation 98% 08/10/2024 11: 02 AM MECHANICAL DESIGNER Inhaled Oxygen Concentration - - Weight 133.6 kg (294 lb 9.6 oz) 08/10/2024 11:02 AM MECHANICAL DESIGNER Height 170.2 cm (5' 7 ) 08/10/2024 11:0 2 AM MECHANICAL DESIGNER verbal Body Mass Index 46.14 08/10/2024 11:02 AM MECHANICAL DESIGNER Plan of Treatment Upcoming Encounters Date Type Department Care Team (Late st Contact Info) Description 2024 9:40 AM CDT Laboratory Only [facility] [address] [place] [address] Deepika Connors MD [address] [place], [place] [phone] 11/09/2024 10:00 AM CDT Office Visit [facility] [address] [place] [address] Deepika Connors MD [address] [place], [place] [phone] 01/19/2025 8:45 AM CDT Office Visit [facility] on THREE [facility], [facility] [address] [place] [address] Christian Talbot MD Three [facility]. [facility] [address] [place] [address] Health Maintenance Due Date Last Done Comments [...] 11/12/2023 Hepatitis C Completed 01/22/2024 PHQ-2 (Physician [place]) Completed 08/10/2024 Meningococcal B Vaccine Aged Out No l onger eligible based on patient's age to complete this topic Meningococcal Vaccine Aged Out No tyrone paula eligible based on patient's age to complete this topic RSV Immunizations Under 20 Months Aged Out No longer eligible based on patient's age to complete this topic Medical Devices Implanted Type Area Manager Federal Device Identifier Shelf Expiration Date Model / Serial / Lot Sj Implantable Loop Recorder- [id number] Implanted:08/2017 by Baron Campbell MD (Quantity not on file) Explanted:Qty: 1 on 10/29/2019 by Baron Campbell MD Implantable Loop Recorder [employer] - DIV [employer] [id number] / [id number] / Procedures Procedure Name Priority Date/Time Associated Diagnosis Comments HEMOGLOBIN, GLYCOSYLATED Routine 08/10/2024 Prediabetes COLLECT.CAPILLARY (FNGR,HEEL,EAR) Routine 08/10/2024 Prediabetes COMPREHENSIVE METABOLIC PANEL Routine 08/03/2024 8:49 AM MECHANICAL DESIGNER Primary hypertension Hyperlipidemia, unspecified hyperlipidemia type LIPID PANEL Routine 08/03/2024 8:49 AM MECHANICAL DESIGNER Hyperlipidemia, unspecified hyperlipidemia type TSH W/REFLEX Routine 08/03/2024 8:49 AM MECHANICAL DESIGNER Hyperlipidemia, unspecified hyperlipidemia type Hypothyroidism, unspecified type [...] MD LABORATORY Final Result Performing Organization Address City/[facility]/ZIP Co de Phone Number [facility] [address] [place] [address], [place] [phone] * COLLECT.CAPILLARY (FNGR,HEEL,EAR) (08/10/2024) us Deepika Connors MD PROCEDURES-UNRESULTED Final Resu lt Performing Organization Address City/[facility]/ZIP Co de Phone Number [facility] * TSH W/REFLEX (08/03/2024 8:49 AM MECHANICAL DESIGNER) TSH 2.233 0.358 - 3.740 uIU/ML 08/03/2024 4:17 PM MECHANICAL DESIGNER [facility] 08/03/2024 8:49 AM MECHANICAL DESIGNER us Deepika Connors MD LABORATORY Final Result Performing Organization Address [facility] de Phone Number [facility] LALI, ARGYLE [address] [place] [address], [place] [phone] * (ABNORMAL) COMPREHENSIVE METABOLIC PANEL (08/03/2024 8:49 AM MECHANICAL DESIGNER) SODIUM S/P/B 144 136 - 145 MMOL/L 08/03/2024 4:17 PM MECHANICAL DESIGNER [facility] LALI, ARGYLE POTASSIUM S/P/B 3.5 3.5 - 5.1 MMOL/L 08/03/2024 4:17 PM MECHANICAL DESIGNER [facility] CHLORIDE S/P/B 106 98 - 107 MMOL/L 08/03/2024 4:17 PM [facility] CO2 28.9 21 - 32 MMOL/L 08/03/2024 4:17 PM [facility] GLUCOSE 92 70 - 99 MG/DL 08/03/2024 4:17 PM [facility] BUN 15 7 - 18 MG/DL 08/03/2024 4:17 PM [facility] CREATININE S/P/B 0.83 0.55 - 1.02 MG/DL 08/03/2024 4:17 PM [facility] CALCIUM S/P/B 8.9 8.4 - 10.5 MG/DL 08/03/2024 4:17 PM [facility] BILIRUBIN TOTAL S/P/B 0.4 0.2 - 1.0 MG/DL 08/03/2024 4:17 PM [facility] ALKALINE PHOSPHATASE S/P/B 85 55 - 142 U/L 08/03/2024 4:17 PM [facility] AST 21 15 - 37 U/L 08/03/2024 4:17 PM [facility] ALT 21 14 - 59 U/L 08/03/2024 4:17 PM [facility] TOTAL PROTEIN S/P/B 6.7 6.4 - 8.2 G/DL 08/03/2024 4:17 PM [facility] ALBUMIN S/P/B 3.5 3.4 - 5.0 G/DL 08/03/2024 4:17 PM [facility] ANION GAP 9.1 5 - 15 MMOL/L 08/03/2024 4:17 PM [facility] Comment:REFERENCE RANGE NOT ESTABLISHED OSMOLALITY (CALC) 298 MOSM/KG 025 4:17 PM [facility] Comment:REFERENCE RANGE NOT ESTABLISHED GFR ESTIMATE 76(L) >90 ML/MIN/1. 73 M2 08/03/2024 4:17 PM [facility] GFR NOTES GFR REFERENCE S: 08/03/2024 4:17 PM MECHANICAL DESIGNER [facility] Comment: THE ESTIMATED GFR IS CALCULATED USING [...] FAILURE: <15 ml/min/1.73 m2 08/03/2024 8:49 AM MECHANICAL DESIGNER us Deepika Connors MD LABORATORY Final Result [facility] [address] [place] [address], * (ABNORMAL) LIPID PANEL (08/03/2024 8:49 AM MECHANICAL DESIGNER) CHOLESTEROL 129 <200 MG/DL 08/03/2024 4:17 PM [facility] TRIGLYCERIDES 43 <150 MG/DL 08/03/2024 4:17 PM [facility] HDL 85 >40 MG/DL 08/03/2024 4:17 PM [facility] LDL-C 35 <100 MG/DL 08/03/2024 4:17 PM [facility] VLDL CALCULATION 9 5 - 28 MG/DL 08/03/2024 4:17 PM [facility] CHOL/HDL RATIO 1.5 0.0 - 4.0 08/03/2024 4:17 PM [facility] LDL/HDL 0.4(L) 0.41 - 2.13 08/03/2024 4:17 PM MECHANICAL DESIGNER [facility] NON HDL CHOLESTEROL 44 <140 MG/DL 08/03/2024 4:17 PM MECHANICAL DESIGNER [facility] 08/03/2024 8:49 AM MECHANICAL DESIGNER us Deepika Connors MD LABORATORY Final Result Performing Organization Address City/[facility] Co de Phone Number [facility] [address] [place] [address], [place] [phone] * COLLECTION VENOUS BLOOD VENIPUNCTURE (08/03/2024) us Deepika Connors MD PROCEDURES Final Result * HEPATITIS C ANTIBODY (01/22/2024 8:54 AM CDT) HEPATITIS C AB NON-REACTI VE NON-REACT MAHNAZ 01/22/2024 10:14 PM CDT [facility] Comment: ANTIBODIES TO HCV NOT DETECTED. DOES NOT EXCLUDE THE POSSIBILITY OF EXPOSURE TO HCV. 01/22/2024 8:54 AM CDT us Deepika Connors MD LABORATORY Final Result Performing Organization Address City/[facility] Co de Phone Number [facility] [address] [place] [address], [place] [phone] * MG SCREENING W DIANE TIARRA DIGI [...] us Documents Scanned SCANNING Final Result [facility] [address] [phone] from Last 3 Months or Most Recently Relevant to Health Maintenance Insurance MEDICARE [facility] MEDICARE [facility] Care Teams Tail Trimmer Relationship Specialty Start Date End Date Deepika Connors MD [address] [place] [address] PCP - General FAMILY PRACTICE 01/09/18 Christian Talbot MD Three [facility]. [address] [address] [place] [facility] Supervisor CARDIOVASCULAR DISEASE 01/09/18
--- OUTSIDE RECORDS SUMMARY | 2024-10-28 08:12 | XMS_ITS | Encounter Summary ---
Author Organization [facility] Address [address] [place] [address] Care Team Providers Care Investigation Division Lieutenant Name Role Phone Deepika Connors MD Primary Care Provider [phone] Christian Talbot MD Unavailable [phone] Encounter Details Date Type Department Care Team (Latest Contact Info) Description 02/11/2018 Abstract [facility] , Sharon Harrison MD Social History Tobacco Use Types Packs/Day Years Used Date Smoking Tobacco: Never Smokeless Tobacco: Never Alcohol Use Standard Drinks/Week Comments No 0 (1 standard drink = 0.6 oz pur e alcohol) Comments Unknown Sex and Gender Information Value Date Recorded Sex Assigned at Female 07/21/2024 11:09 AM BAG MACHINE OPERATOR Legal Sex Female 9:55 AM CDT Gender Identity Female 09/05/2021 11:16 AM BAG MACHINE OPERATOR Sexual Orientation Straight 09/05/2021 11 :16 AM BAG MACHINE OPERATOR documented as of this encounter Plan of Treatment Upcoming Encounters Date Type Department Care Team (Late st Contact Info) Description 2024 9:40 AM CDT Laboratory Only [facility] Family Medicine [address] [place] [phone] Deepika Connors MD [facility] [place] [address] 11/09/2024 10:00 AM CDT Office Visit [facility] Family Medicine - [place] [address] [place] [address] Deepika Connors MD [address] [place] [address] 01/19/2025 8:45 AM CDT Office Visit [facility] [address] [facility] [address], [address] [place] [address] Christian Talbot MD Three [facility] [address] [place] [address] documented as of this encounter Visit Diagnoses Not on filedocumented in this encounter Additional Health Concerns Infection Onset Date Last Indicated Resolved Time COVID-19 Rule Out 07/22/2020 07/22/2020 07/24/2020 3:20 AM BAG MACHINE OPERATOR COVID-19 Rule Out 07/07/2021 07/07/2021 07/10/2021 2:50 PM BAG MACHINE OPERATOR COVID-19 Confirmed 07/07/2021 07/07/2021 12:32 AM BAG MACHINE OPERATOR documented as of this encounter Care Teams Investigation Division Lieutenant Relationship Specialty Start Date End Date Deepika Connors MD [facility] [place] [address] PCP - General FAMILY PRACTICE 01/09/18 Christian Talbot MD Three [facility]. [address] [place] [address] [place] Diabetes Territory Manager CARDIOVASCULAR DISEASE 01/09/18 documented as of this encounter
--- OUTSIDE RECORDS SUMMARY | 2024-10-28 08:12 | XMS_ITS | Clinical Summary ---
Author Organization [facility] Address [address] [place] [address] Care Team Providers Care Cigarette Tester Name Role Phone Deepika Connors MD Primary Care Provider [phone] Source Comments [facility],non-[facility] Affiliates and Associated Physician Practices is amultiple site organization consisting of ambulatory clinics and hospital sitesin [place], [place], [place] and [place]. This disclosure is being madepursuant to the Care Everywhere program and may not contain all information available regarding this patient. Last updated 18.[facility] Allergies Active Allergy Reactions Criticality Noted Date Comments Codeine Other 02/08/2024 tachycardia Social History Tobacco Use Types Packs/Day Years Used Date Smoking Tobacco: Never Assessed Comments Unknown Sex and Gender Information Value Date Recorded Sex Assigned at Not on file Legal Sex Female 7:59 PM MANAGEMENT SME Gender Identity Not on file Sexual Orientation [...] [facility] Care Teams Cigarette Tester Relationship Specialty Start Date End Date Deepika Connors MD [address] [place] [address] PCP - General Family Medicine 02/08/24
--- OUTSIDE RECORDS SUMMARY | 2024-10-28 08:12 | XMS_ITS | Encounter Summary ---
Author Organization [facility] Address [address] [place] [address] Care Team Providers Care Mounter Hand Name Role Phone Deepika Connors MD Primary Care Provider [phone] Christian Talbot MD Unavailable [phone] Encounter Details Date Type Department Care Team (Latest Contact Info) Description 03/14/2018 Abstract [facility] , Sharon Harrison MD Social History Tobacco Use Types Packs/Day Years Used Date Smoking Tobacco: Never Smokeless Tobacco: Never Alcohol Use Standard Drinks/Week Comments No 0 (1 standard drink = 0.6 oz pur e alcohol) Comments Unknown Sex and Gender Information Value Date Recorded Sex Assigned at Female 07/21/2024 11:09 AM REHAB AIDE Legal Sex Female 9:55 AM CDT Gender Identity Female 09/05/2021 11:16 AM REHAB AIDE Sexual Orientation Straight 09/05/2021 11 :16 AM REHAB AIDE documented as of this encounter Plan of Treatment Upcoming Encounters Date Type Department Care Team (Late st Contact Info) Description 2024 9:40 AM CDT Laboratory Only [facility] Family Medicine [address] [place] [phone] Deepika Connors MD [facility] [place] [address] 11/09/2024 10:00 AM CDT Office Visit [facility] Family Medicine - [place] [address] [place] [address] Deepika Connors MD [address] [place] [address] 01/19/2025 8:45 AM CDT Office Visit [facility] THREE [facility] [address], [address] [place] [address] Christian Tal[facility] MD [facility] [address] [place] [address] documented as of this encounter Visit Diagnoses Not on filedocumented in this encounter Additional Health Concerns Infection Onset Date Last Indicated Resolved Time COVID-19 Rule Out 07/22/2020 07/22/2020 07/24/2020 3:20 AM REHAB AIDE COVID-19 Rule Out 07/07/2021 07/07/2021 07/10/2021 2:50 PM REHAB AIDE COVID-19 Confirmed 07/07/2021 07/07/2021 12:32 AM REHAB AIDE documented as of this encounter Care Teams Mounter Hand Relationship Specialty Start Date End Date Deepika Connors MD [facility] [place] [address] PCP - General FAMILY PRACTICE 01/09/18 Christian Talbot MD Three [facility]. [address] [place] [address] [place] Product Ambassador CARDIOVASCULAR DISEASE 01/09/18 documented as of this encounter
== END 2024-10-28 08:10 | disposition home or self-care (01) ==
LOC: ANHLAB 08:09
PROVIDERS: Visit Provider Internal Medicine
DX: E03.9 Hypothyroidism, unspecified (principal)
CPT/HCPCS: 36415; 82533

== ENCOUNTER 2024-12-09 09:56 | Outpatient (CLI) | payer MEDICARE, OTHER, SELFPAY ==
--- NOTE | ~2024-12-09 | US_ITS ---
Thyroid ultrasound. Clinical History: Hypothyroidism Findings: Real-time sonography of the thyroid gland was performed. The right lobe measures 4.6 x 2.6 x 2.7 cm. The left lobe measures 4.4 x 2.5 x 2.4 cm. The isthmus is 11 mm in AP diameter. Thyroid parenchyma is diffusely heterogeneous. Questionable 2.3 x 1.1 x 2.4 cm somewhat ill-defined h eterogeneous isoechoic nodule in the right anterior thyroid lobe. Suspected 1.9 x 1.0 x 1.4 cm isoech oic mildly heterogeneous solid nodule at the left side of the isthmus. Impression: Heterogeneous thyroid parenchyma with suspected 2.4 cm and 1.9 cm TR-3 nodules, as above. Annual foll ow-up exam advised. Reviewed, dictated and finalized at [facility]. Impression: Heterogeneous thyroid parenchyma with suspected 2.4 cm and 1.9 cm TR-3 nodules, as above. Annual follow-up exam advised.
--- NOTE | ~2024-12-09 | CT_ITS ---
CT scan of the Neck Technique: 2.5 mm axial scans were obtained through the neck after intravenous administration of 75 c c Omnipaque 350. Coronal and sagittal reconstructions of the neck were obtained. Dose reduction techn ique was used on this scan by utilizing automated exposure control and iterative reconstruction techn ique. The dose-length product (DLP) was 529.90 mGy-cm. Clinical History: Hypothyroidism Findings: There is no evidence of any significant cervical lymphadenopathy. Several small, nonenlarged jugulo- digastric and posterior cervical lymph nodes are noted bilaterally. Parapharyngeal spaces appear norm al bilaterally. The parotid and submandibular glands appear normal. The pharyngeal mucosal spaces appear normal. No soft tissue masses are seen in the neck. The thyroid gland appears homogeneous. Images of the lung apices reveal no abnormalities. Impression: Homogeneous thyroid gland. Correlate with thyroid function tests and nuclear medicine thyroid uptake scan as indicated. Reviewed, dictated and finalized at [facility]. Impression: Homogeneous thyroid gland. Correlate with thyroid function tests and nuclear me dicine thyroid uptake scan as indicated.
[2024-12-09 10:13] LABS: Estimated Glomerular Filt Rate > 60
--- OUTSIDE RECORDS SUMMARY | 2024-12-09 11:13 | XMS_ITS | Clinical Summary ---
Author Organization [facility] Address [address] [place] [address] Care Team Providers Care Typesetting Machine Operator/Tender Name Role Phone Deepika Connors MD Primary Care Provider [phone] Source Comments [facility],non-[facility] Affiliates and Associated Physician Practices is amultiple site organization consisting of ambulatory clinics and hospital sitesin [place], [place], [place] and [place]. This disclosure is being madepursuant to the Care Everywhere program and may not contain all information available regarding this patient. Last updated 18.[facility] [employer] Allergies Active Allergy Reactions Criticality Noted Date Comments Codeine Other 02/08/2024 tachycardia Social History Tobacco Use Types Packs/Day Years Used Date Smoking Tobacco: Never Assessed Comments Unknown Sex and Gender Information Value Date Recorded Sex Assigned at Not on file Legal Sex Female 7:59 PM GRAIN CLEANER Gender Identity Not on file Sexual Orientation [...] 5:23 PM CDT Height 170.2 cm (5' 7) 02/08/2024 5:23 PM CDT Body Mass Index [...] age to complete this topic Insurance [facility]ICARE [facility] Care Teams Typesetting Machine Operator/Tender Relationship Specialty Start Date End Date Deepika Connors MD [address] [place] [address] PCP - General Family Medicine 02/08/24
== END 2024-12-09 09:57 | disposition home or self-care (01) ==
PROVIDERS: Visit Provider Internal Medicine
DX: E07.89 Other specified disorders of thyroid (principal); E03.9 Hypothyroidism, unspecified; E66.9 Obesity, unspecified; R59.0 Localized enlarged lymph nodes
CPT/HCPCS: 70491; 76536; Q9967

== ENCOUNTER 2024-12-17 12:43 | Outpatient (CLI) | payer MEDICARE, OTHER, SELFPAY ==
--- NOTE | ~2024-12-17 | US_ITS ---
EXAMINATION: US FNA w image guidance, US FNA additional DATE: 12/17/2024 13:45 INDICATION: Right and left thyroid nodules TECHNIQUE: A time-out was performed to verify the patient's name, date of , and procedure to be performed . The procedure and its benefits and risks were discussed with the patient. Risks specifically discus sed included bleeding and infection. The patient understood the risks and agreed to proceed. The neck was prepped and draped in the usual sterile manner. 8 mL 1% lidocaine was used for local anesthesia . Attention was first turned to the right thyroid nodule. 6 passes were made with a 25G needle into the lesion. Appropriate needle location was documented with continuous sonographic guidance. Attenti on was then turned to the left thyroid nodule. 4 passes were made with a 25G needle into the lesion. Appropriate needle location was documented with continuous sonographic guidance. Sterile bandages we re applied. There were no immediate complications. FINDINGS: Grayscale ultrasound images demonstrate biopsy needles advanced into the 2.4 cm TI RADS 3 right thyro id mass of concern. Subsequent images demonstrate biopsy needles advanced into the 1.9 cm TI RADS 3 m ass of concern at the junction of the left thyroid lobe and isthmus. IMPRESSION: 1. Successful ultrasound-guided fine needle aspiration of a 2.4 cm TI RADS 3 right thyroid mass. 2. Successful ultrasound-guided fine-needle aspiration of a 1.9 cm TI RADS 3 mass at the junction of the left thyroid lobe and isthmus. Reviewed, dictated and finalized at location B. IMPRESSION: 1. Successful ultrasound-guided fine needle aspiration of a 2.4 cm TI RADS 3 r ight thyroid mass. 2. Successful ultrasound-guided fine-needle aspiration of a 1.9 cm TI RADS 3 ma ss at the junction of the left thyroid lobe and isthmus.
--- OUTSIDE RECORDS SUMMARY | 2024-12-17 12:58 | XMS_ITS | Encounter Summary ---
Author Organization [facility] Address [address] [place] [address] Care Team Providers Care Barrel Coater Name Role Phone Deepika Connors MD Primary Care Provider [phone] Christian Talbot MD Unavailable [phone] Encounter Details Date Type Department Care Team (Latest Contact Info) Description 12/08/2024 Scan HEALTH INFO [facility] Scanned, Doc Med Group Social History Tobacco Use Types Packs/Day Years Used Date Smoking Tobacco: Never Smokeless Tobacco: Never Alcohol Use Standard Drinks/Week Comments Never 0 (1 standard drink = 0.6 oz pur e alcohol) PHQ-2 Answer Date Recorded Patient Health Questionnaire-2 Score 2 11/09/2024 Comments No Sex and Gender Information Value Date Recorded Sex Assigned at Female 07/21/2024 11:09 AM COMBER SETTER Legal Sex Female 9:55 AM CDT Gender Identity Female 09/05/2021 11:16 AM COMBER SETTER Sexual Orientation Straight 09/05/2021 11 :16 AM COMBER SETTER documented as of this encounter Plan of Treatment Upcoming Encounters Date Type Department Care Team (Late st Contact Info) Description 01/19/2025 8:45 AM CDT [facility] [address] [place] [address] Christian Talbot MD [facility]. [facility] [address] [place] [address] 02/03/2025 10:00 AM CDT Laboratory Only [address] [address] Deepika Connors MD [address] [place] [address] 02/10/2025 10:00 AM CDT Office Visit [address] [address] Deepika Connors MD [address] [place] [phone] 06/04/2025 9:00 AM COMBER SETTER Office Visit [facility] [address] [place] [address] Kelvin Domínguez MD [address] [place] [address] documented as of this encounter Visit Diagnoses Not on filedocumented in this encounter Additional Health Concerns Assessment Noted Time PHQ-9 Depression Total Score: 7 11/10/19 25 10:24 AM CDT documented as of this encounter Care Teams Barrel Coater Relationship Specialty Start Date End Date Deepika Connors MD [address] [place] [address] PCP - General FAMILY PRACTICE 01/09/18 Christian Talbot MD [facility] [address] [place] [address] [place] Territory Supervisor CARDIOVASCULAR DISEASE 01/09/18 documented as of this encounter
--- OUTSIDE RECORDS SUMMARY | 2024-12-17 12:58 | XMS_ITS | Encounter Summary ---
Author Organization [facility] Address [address] [place] [address] Care Team Providers Care Chain Saw Driver Name Role Phone Deepika Connors MD Primary Care Provider [phone] Christian Talbot MD Unavailable [phone] Encounter Details Date Type Department Care Team (Late st Contact Info) Description 10/23/2024 Results Follow-Up [facility] Family Medicine [facility] [address] [place] [address] Deepika Connors MD [address] [place] [address] A1C (BACK OFFICE), LIPID PANEL, TSH W/REFLEX, Additional followed-up results: 2 Social History Tobacco Use Types Packs/Day Years Used Date Smoking Tobacco: Never Smokeless Tobacco: Never Alcohol Use Standard Drinks/Week Comments Never 0 (1 standard drink = 0.6 oz pur e alcohol) PHQ-2 Answer Date Recorded Patient Health Questionnaire-2 Score 1 08/10/2024 Comments No Sex and Gender Information Value Date Recorded Sex Assigned at Female 07/21/2024 11:09 AM UNIFORM FORCE CAPTAIN Legal Sex Female 9:55 AM CDT Gender Identity Female 09/05/2021 11:16 AM UNIFORM FORCE CAPTAIN Sexual Orientation Straight 09/05/2021 11 :16 AM UNIFORM FORCE CAPTAIN documented as of this encounter Progress Notes * Deepika Connors MD - 11/09/2024 11:18 AM CDT Discussed results with patient and plan going forward in clinic. * Deepika Connors MD - 10/23/2024 12:30 PM CDT Discussed results with patient and plan going forward in clinic. documented in this encounter Plan of Treatment Upcoming Encounters Date Type Department Care Team (Late st Contact Info) Description 01/19/2025 8:45 AM CDT Office Visit [facility] [address] [place] [address] Christian Talbot MD Three [facility]. [address] [place] [address] 02/03/2025 10:00 AM CDT Laboratory Only [facility] Family Medicine - [address] [address] Deepika Connors MD [address] [place] [address] 02/10/2025 10:00 AM CDT Office Visit [facility] Family Medicine - [place] [address] [place] [address] Deepika Connors MD [address] [place] [address] 06/04/2025 9:00 AM UNIFORM FORCE CAPTAIN Office Visit [facility] Multispecialty Care - [facility] [address] [place] [address] Kelvin Domínguez MD 3 [facility] [address] [place] [address] documented as of this encounter Visit Diagnoses Not on filedocumented in this encounter Additional Health Concerns Assessment Noted Time PHQ-9 Depression Total Score: 2 08/10/19 25 11:01 AM UNIFORM FORCE CAPTAIN documented as of this encounter Care Teams Chain Saw Driver Relationship Specialty Start Date End Date Deepika Connors MD [address] [place] [address] PCP - General FAMILY PRACTICE 01/09/18 Christian Talbot MD Three [facility]. [facility] [address] [place] [address] [place]atch Marina Manager CARDIOVASCULAR DISEASE 01/09/18 documented as of this encounter
--- OUTSIDE RECORDS SUMMARY | 2024-12-17 12:58 | XMS_ITS | Encounter Summary ---
Author Organization [facility] Address [address] [place] [address] Care Team Providers Care Instructional Material Director Name Role Phone Deepika Connors MD Primary Care Provider [phone] Christian Talbot MD Unavailable [phone] Encounter Details Date Type Department Care Team (Latest Contact Info) Description 02/11/2018 Abstract [facility] , Sharon Harrison MD Social History Tobacco Use Types Packs/Day Years Used Date Smoking Tobacco: Never Smokeless Tobacco: Never Alcohol Use Standard Drinks/Week Comments No 0 (1 standard drink = 0.6 oz pur e alcohol) Comments Unknown Sex and Gender Information Value Date Recorded Sex Assigned at Female 07/21/2024 11:09 AM CUSTOMER RELATIONS COORDINATOR Legal Sex Female 9:55 AM CDT Gender Identity Female 09/05/2021 11:16 AM CUSTOMER RELATIONS COORDINATOR Sexual Orientation Straight 09/05/2021 11 :16 AM CUSTOMER RELATIONS COORDINATOR documented as of this encounter Plan of Treatment Upcoming Encounters Date Type Department Care Team (Late st Contact Info) Description 01/19/2025 8:45 AM CDT [facility] [address] [id number] Christian Talbot MD [facility]. [address] [phone] 02/03/2025 10:00 AM CDT Laboratory Only [facility] [address] [place] [address] Deepika Connors MD [address] [place] [address] 02/10/2025 10:00 AM CDT Office Visit [facility] [address] [place] [address] Deepika Connors MD [address] [place], [place] [phone] 06/04/2025 9:00 AM CUSTOMER RELATIONS COORDINATOR Office Visit [facility] Multispecialty Care - [facility] [address] [facility] [place] [address] Kelvin Domínguez MD 3 [facility] [address] [place] [address] documented as of this encounter Visit Diagnoses Not on filedocumented in this encounter Additional Health Concerns Infection Onset Date Last Indicated Resolved Time COVID-19 Rule Out 07/22/2020 07/22/2020 07/24/2020 3:20 AM CUSTOMER RELATIONS COORDINATOR COVID-19 Rule Out 07/07/2021 07/07/2021 07/10/2021 2:50 PM CUSTOMER RELATIONS COORDINATOR COVID-19 Confirmed 07/07/2021 07/07/2021 12:32 AM CUSTOMER RELATIONS COORDINATOR documented as of this encounter Care Teams Instructional Material Director Relationship Specialty Start Date End Date Deepika Connors MD [facility] [place] [address] PCP - General FAMILY PRACTICE 01/09/18 Christian Talbot MD Three [facility]. [address] [place] [address] [facility] Case Manager CARDIOVASCULAR DISEASE 01/09/18 documented as of this encounter
--- OUTSIDE RECORDS SUMMARY | 2024-12-17 12:58 | XMS_ITS | Clinical Summary ---
Author Organization [facility] Address [facility] [place] [address] Care Team Providers Care Transmitter Tester Name Role Phone Deepika Connors MD Primary Care Provider [phone] Christian Talbot MD Unavailable [phone] Allergies Active Allergy Reactions Criticality Noted [...] Daily,Will take another if needed, Reported on 11/09/2024 levothyroxine (SYNTHROID) 50 MCG tabletIndications :Hypothyroidism, unspecified type TAKE 1 TABLET(50 MCG) BY MOUTH EVERY MORNING 90 tablet 2 Active irbesartan (AVAPRO) 300 MG tabletIndications :Primary hypertension Take 1 tablet (300 mg total) by mouth daily. 90 tablet 2 024 Active rosuvastatin (CRESTOR) 10 MG tabletIndications :Hyperlipidemia, [...] Weight Loss 3 mL 2 025 Active citalopram (CELEXA) 20 MG tabletIndications :Mild major depression TAKE 1 TABLET(20 MG) BY MOUTH DAILY 90 tablet 1 025 Active amLODIPine (NORVASC) 10 MG tabletIndications :Primary hypertension TAKE 1 TABLET(10 MG) BY MOUTH DAILY 90 tablet 1 025 Active citalopram (CELEXA) 20 MG tabletIndications :Mild major depression TAKE 1 TABLET(20 MG) BY MOUTH DAILY 90 tablet 1 024 2024 Discontinued amLODIPine (NORVASC) 10 MG tabletIndications :Primary hypertension TAKE 1 TABLET(10 MG) BY MOUTH DAILY 90 tablet 1 025 2024 Discontinued Active Problems Problem Noted [...] Encounters Date Type Department Care Team Description 12/09/2024 Scan HEALTH INFO [facility] Scanned, Doc [facility] CT (SCAN); Ultrasound (SCAN) 12/08/2024 Scan MG HEALTH INFO [facility] Scanned, [facility] 11/09/2024 10:00 AM CDT Office Visit [address] [address] Deepika Connors MD Hypothyroidism; Hypertension; Hyperlipidemia; Prediabetes; Obesity; Chronic Kidney Disease; Anxiety 11/09/2024 Travel 2024 9:40 AM CDT Laboratory Only [address] [address] Deepika Connors MD 2024 Travel 10/26/[address] [address] Deepika Connors MD Lab Draw 10/23/2024 Results Follow-Up [address] [address] Deepika Connors MD A1C (BACK OFFICE), LIPID PANEL, TSH W/REFLEX, Additional followed-up results: 2 10/22/[address] [address] Deepika Connors MD Medication from Last 3 Months Immunizations Immunization Administration [...] Heart Disease Father Decedes Lung Cancer Father Alcohol Abuse Mother Breast Cancer Mother COPD Mother Cancer Mother Diabetes Mother Drug Abuse Mother Heart Disease Mother None Hypertension Mother Vision loss Mother Diabetes Sister 1 Decedes Hypertension Sister 1 Alcohol Abuse Sister 2 Defects Sister 2 Drug Abuse Sister 2 Relation Status Comments Father (Age 67) Mother Alive Sister 1 Sister 2 Alive Social History Tobacco Use Types Packs/Day Years Used Date Smoking Tobacco: Never Smokeless Tobacco: Never Tobacco Cessation:Counseling Given: Not Answered Alcohol Use Standard Drinks/Week Comments Never 0 (1 standard drink = 0.6 oz pur e alcohol) PHQ-2 Answer Date Recorded Patient Health Questionnaire-2 Score 2 11/09/2024 Comments No Sex and Gender Information Value Date Recorded Sex Assigned at Female 07/21/2024 11:09 AM GLASS TUBE BENDER Legal Sex Female 9:55 AM CDT Gender Identity Female 09/05/2021 11:16 AM GLASS TUBE BENDER Sexual Orientation Straight 09/05/2021 11 :16 AM GLASS TUBE BENDER Last Filed Vital Signs Vital Sign Reading Time Taken Comments Blood Pressure 138/80 11/09/2024 11:[address] Vásquez manual read Pulse 64 11/09/2024 10:25 AM CDT Temperature 36.7 C (98 F) 11/09/2024 10:25 AM CDT Respiratory Rate 16 11/09/2024 10:2 5 AM CDT Oxygen Saturation 100% 11/09/2024 10: 25 AM CDT Inhaled Oxygen Concentration - - Weight 131.7 kg (290 lb 6.4 oz) 11/09/2024 10:25 AM CDT Height 170.2 cm (5' 7) 11/09/2024 10:2 5 AM CDT verbal Body Mass Index 45.48 11/09/2024 10:25 AM CDT Plan of Treatment Upcoming Encounters Date Type Department Care Team (Late st Contact Info) Description 01/19/2025 8:45 AM CDT [facility] [address] [place] [address] Christian Talbot MD Three [facility]. [facility] [address] [place], [place] [address] 02/03/2025 10:00 AM CDT Laboratory Only [facility] - [address] [address] Deepika Connors MD [address] [place] [phone] 02/10/2025 10:00 AM CDT Office Visit [facility] - [address] [address] Deepika Connors MD [address] [place] [phone] 06/04/2025 9:00 AM GLASS TUBE BENDER Office Visit [facility] Multispecialty Care - [facility] [address] [facility] [place] [address] Kelvin Domínguez MD [address] [facility] [address] [place] [address] Health Maintenance Due Date Last Done Comments [...] 11/12/2023 Hepatitis C Completed 01/22/2024 PHQ-2 (Physician Gepp) Completed 11/09/2024 Meningococcal B Vaccine Aged Out No l onger eligible based on patient's age to complete this topic Meningococcal Vaccine Aged Out No tyrone paula eligible based on patient's age to complete this topic RSV Immunizations Under 20 Months Aged Out No longer eligible based on patient's age to complete this topic Medical Devices Implanted Type Area Hat Blocking Operator Device Identifier Shelf Expiration Date Model / Serial / Lot Sj Implantable Loop Recorder- [id number] Implanted:08/2017 by Baron Campbell MD (Quantity not on file) Explanted:Qty: 1 on 10/29/2019 by Baron Campbell MD Implantable Loop Recorder [facility] [facility] DIV [employer] [id number] / [id number] / Procedures Procedure Name Priority Date/Time Associated Diagnosis Comments CT GENERIC 12/09/2024 CT GENERIC 12/09/2024 ULTRASOUND GENERIC (SCAN ORDER) 12/09/2024 HEMOGLOBIN, GLYCOSYLATED Routine 11/09/2024 Prediabetes COLLECT.CAPILLARY (FNGR,HEEL,EAR) Routine 11/09/2024 Prediabetes ALBUMIN URINE RANDOM W/CREATININE Routine 2024 11:10 AM CDT Prediabetes COMPREHENSIVE METABOLIC PANEL Routine 2024 9:41 AM CDT Prediabetes Hyperlipidemia, unspecified hyperlipidemia type Primary hypertension CKD (chronic kidney disease) stage 2, GFR 60-89 ml/min TSH W/REFLEX Routine 2024 9:41 AM CDT Hypothyroidism, unspecified type Hyperlipidemia, unspecified hyperlipidemia type LIPID PANEL Routine 2024 9:41 AM CDT Hyperlipidemia, unspecified hyperlipidemia type COLLECTION VENOUS BLOOD VENIPUNCTURE Routine 2024 Routine general medical examination at a health [...] Recently Relevant to Health Maintenance Results * CT GENERIC (12/09/2024) Only the most recent of2 resultswithin the time period is included. Anatomical Region Laterality Modality Other 12/09/2024 [facility] Scanned SCANNING Final Resu lt * ULTRASOUND GENERIC (SCAN ORDER) (12/09/2024) Anatomical Region Laterality Modality Other 12/09/2024 [facility] Scanned SCANNING Final Resu lt * A1C (BACK OFFICE) (11/09/2024) HGB A1C 5.4 % -HARSH RESENDIZ 11/09/2024 us Deepika Connors MD LABORATORY Final Result Performing Organization Address City/[facility]/ZIP Co de Phone Number [facility] [address] [place] [address], [place] [phone] * COLLECT.CAPILLARY (FNGR,HEEL,EAR) (11/09/2024) Deepika Connors MD PROCEDURES-UNRESULTED Final Resu lt Performing Organization Address [facility] Co de Phone Number [facility] * (ABNORMAL) ALBUMIN URINE RANDOM W/CREATININE (2024 11:10 AM CDT) MICROALBUMIN (U) 102.5(H) <20 MG/L 11/03/19 8:13 PM CDT [facility] CREATININE RANDOM (U) 239.1 MG/DL 2024 8:13 PM CDT [facility] ALBUMIN/CREAT RATIO 42.9(H) <30 MG/G 2024 8:13 PM CDT [facility] URINE SPECIMEN / Unknown 2024 11:10 AM CDT us Deepika Connors MD URINE ORDERABLES Final Result Performing Organization Address [facility] de Phone Number [facility] [address] [place] [address], [place] [phone] * TSH W/REFLEX (2024 9:41 AM CDT) TSH 1.575 0.358 - 3.740 uIU/ML 2024 2:30 PM CDT [facility] 2024 9:41 AM CDT us Deepika Connors MD LABORATORY Final Result Performing Organization Address City/State/[facility] Co de Phone Number [facility] LALI MONTGOMERY [address] [place] [address], [place] [phone] * (ABNORMAL) COMPREHENSIVE METABOLIC PANEL (2024 9:41 AM CDT) [facility] SODIUM S/P/B 143 136 - 145 MMOL/L 2024 2:37 PM CDT [facility] POTASSIUM S/P/B 3.8 3.5 - 5.1 MMOL/L 2024 2:37 PM CDT [facility] CHLORIDE S/P/B 103 98 - 107 MMOL/L 2024 2:37 PM CDT [facility] CO2 26.9 21 - 32 MMOL/L 2024 2:37 PM CDT [facility] GLUCOSE 92 70 - 99 MG/DL 2024 2:30 PM CDT [facility] BUN 11 7 - 18 MG/DL 2024 2:30 PM CDT [facility] CREATININE S/P/B 0.77 0.55 - 1.02 MG/DL 2024 2:30 PM CDT [facility] CALCIUM S/P/B 9.1 8.4 - 10.5 MG/DL 2024 2:30 PM CDT [facility] BILIRUBIN TOTAL S/P/B 0.4 0.2 - 1.0 MG/DL 2024 2:30 PM CDT [facility] ALKALINE PHOSPHATASE S/P/B 94 55 - 142 U/L 2024 2:30 PM CDT [facility] AST 17 15 - 37 U/L 2024 2:30 PM CDT [facility] ALT 18 14 - 59 U/L 2024 2:30 PM CDT [facility] TOTAL PROTEIN S/P/B 7.4 6.4 - 8.2 G/DL 2024 2:30 PM CDT [facility] ALBUMIN S/P/B 3.6 3.4 - 5.0 G/DL 2024 2:30 PM CDT [facility] ANION GAP 13.1 5 - 15 MMOL/L 2024 2:37 PM CDT [facility] Comment:REFERENCE RANGE NOT ESTABLISHED OSMOLALITY (CALC) 295 MOSM/KG 025 2:37 PM CDT [facility] Comment:REFERENCE RANGE NOT ESTABLISHED GFR ESTIMATE 82(L) >90 ML/MIN/1. 73 M2 2024 2:30 PM CDT [facility] GFR NOTES GFR REFERENCE S: 2024 2:30 PM CDT [facility] Comment: THE ESTIMATED GFR IS CALCULATED USING [...] ml/min/1.73 m2 G5,KIDNEY FAILURE: <15 ml/min/1.73 m2 2024 9:41 AM CDT us Deepika Connors MD LABORATORY Final Result [facility] MCCARTY [address] [place] [address], [place] [phone] * LIPID PANEL (2024 9:41 AM CDT) CHOLESTEROL 137 <200 MG/DL 2024 2:30 PM CDT [facility] TRIGLYCERIDES 39 <150 MG/DL 2024 2:30 PM CDT [facility] HDL 84 >40 MG/DL 2024 2:30 PM CDT [facility] LDL-C 45 <100 MG/DL 2024 2:30 PM CDT [facility] VLDL CALCULATION 8 5 - 28 MG/DL 2024 2:30 PM CDT [facility] CHOL/HDL RATIO 1.6 0.0 - 4.0 2024 2:30 PM CDT [facility] LDL/HDL 0.5 0.41 - 2.13 2024 2:30 PM CDT [facility] NON HDL CHOLESTEROL 53 <140 MG/DL 2024 2:30 PM CDT [facility] 2024 9:41 AM CDT us Deepika Connors MD LABORATORY Final Result Performing Organization Address City/State/[facility] Co de Phone Number [facility] [address] [place] [address], * COLLECTION VENOUS BLOOD VENIPUNCTURE (2024) us Deepika Connors MD PROCEDURES Final Result * HEPATITIS C ANTIBODY (01/22/2024 8:54 AM CDT) HEPATITIS C AB NON-REACTI VE NON-REACT MAHNAZ 01/22/2024 10:14 PM CDT [facility] Comment: ANTIBODIES TO HCV NOT DETECTED. DOES NOT EXCLUDE THE POSSIBILITY OF EXPOSURE TO HCV. 01/22/2024 8:54 AM CDT us Deepika Connors MD LABORATORY Final Result [facility] [address] [place] [address], [id number] * MG SCREENING W DIANE TIARRA DIGI [...] us Documents Scanned SCANNING Final Result [facility] [address] [address] from Last 3 Months or Most Recently Relevant to Health Maintenance Insurance MEDICARE [facility] MEDICARE [employer] Care Teams Transmitter Tester Relationship Specialty Start Date End Date Deepika Connors MD [address] [place] [address] PCP - General FAMILY PRACTICE 01/09/18 Christian Talbot MD [address] [address] [place] [facility] Demonstration Agent CARDIOVASCULAR DISEASE 01/09/18
--- OUTSIDE RECORDS SUMMARY | 2024-12-17 12:58 | XMS_ITS | Encounter Summary ---
Author Organization [facility] Address [address] [place] [address] Care Team Providers Care Visual Effects Editor Name Role Phone Deepika Connors MD Primary Care Provider [phone] Christian Talbot MD Unavailable [phone] Encounter Details Date Type Department Care Team (Latest Contact Info) Description 03/14/2018 Abstract [facility] , Sharon Harrison MD Social History Tobacco Use Types Packs/Day Years Used Date Smoking Tobacco: Never Smokeless Tobacco: Never Alcohol Use Standard Drinks/Week Comments No 0 (1 standard drink = 0.6 oz pur e alcohol) Comments Unknown Sex and Gender Information Value Date Recorded Sex Assigned at Female 07/21/2024 11:09 AM CUTTING MACHINE OPERATOR Legal Sex Female 9:55 AM CDT Gender Identity Female 09/05/2021 11:16 AM CUTTING MACHINE OPERATOR Sexual Orientation Straight 09/05/2021 11 :16 AM CUTTING MACHINE OPERATOR documented as of this encounter Plan of Treatment Upcoming Encounters Date Type Department Care Team (Late st Contact Info) Description 01/19/2025 8:45 AM CDT [facility] [address] [phone] Christian Talbot MD [facility]. [address] [phone] 02/03/2025 10:00 AM CDT Laboratory Only [facility] [address] [place] [address] Deepika Connors MD [address] [place] [address] 02/10/2025 10:00 AM CDT Office Visit [facility] [address] [place] [address] Deepika Connors MD [address] [place], [place] [phone] 06/04/2025 9:00 AM CUTTING MACHINE OPERATOR Office Visit [facility] Multispecialty Care - [facility] [address] [facility] [place] [address] Kelvin Domínguez MD [address] [facility] [address] [place] [address] documented as of this encounter Visit Diagnoses Not on filedocumented in this encounter Additional Health Concerns Infection Onset Date Last Indicated Resolved Time COVID-19 Rule Out 07/22/2020 07/22/2020 07/24/2020 3:20 AM CUTTING MACHINE OPERATOR COVID-19 Rule Out 07/07/2021 07/07/2021 07/10/2021 2:50 PM CUTTING MACHINE OPERATOR COVID-19 Confirmed 07/07/2021 07/07/2021 12:32 AM CUTTING MACHINE OPERATOR documented as of this encounter Care Teams Visual Effects Editor Relationship Specialty Start Date End Date Deepika Connors MD [facility] [place] [address] PCP - General FAMILY PRACTICE 01/09/18 Christian Talbot MD Three [facility]. [address] [place] [address] Donaldson Desulphurizer Operator CARDIOVASCULAR DISEASE 01/09/18 documented as of this encounter
--- OUTSIDE RECORDS SUMMARY | 2024-12-17 12:58 | XMS_ITS | Clinical Summary ---
Author Organization [facility] Address [address] [place] [address] Care Team Providers Care Lapping Machine Tender Name Role Phone Deepika Connors MD Primary Care Provider [phone] Source Comments [facility] Affiliates and Associated Physician Practices is amultiple site organization consisting of ambulatory clinics and hospital sitesin [place], [place], [place] and [place]. This disclosure is being madepursuant to the Care Everywhere program and may not contain all information available regarding this patient. Last updated 18.[facility] Allergies Active Allergy Reactions Criticality Noted Date Comments Codeine Other 02/08/2024 tachycardia Social History Tobacco Use Types Packs/Day Years Used Date Smoking Tobacco: Never Assessed Comments Unknown Sex and Gender Information Value Date Recorded Sex Assigned at Not on file Legal Sex Female 7:59 PM LAND RESOURCE SPECIALIST Gender Identity Not on file Sexual Orientation [...] age to complete this topic Insurance MEDICARE [facility] Care Teams Lapping Machine Tender Relationship Specialty Start Date End Date Deepika Connors MD [address] [place] [address] PCP - General Family Medicine 02/08/24
--- OUTSIDE RECORDS SUMMARY | 2024-12-17 12:58 | XMS_ITS | Encounter Summary ---
Author Organization [facility] Address [address] [place] [id number] Care Team Providers Care Clinical Program Coordinator Name Role Phone Deepika Connors MD Primary Care Provider [phone] Christian Talbot MD Unavailable [phone] Reason for Visit * Reason Comments CT (SCAN) Ultrasound (SCAN) Encounter Details Date Type Department Care Team (Late Contact Info) Description 12/09/2024 Scan HEALTH INFO [facility] Scanned, Doc Med Group CT (SCAN); Ultrasound (SCAN) Social History Tobacco Use Types Packs/Day Years Used Date Smoking Tobacco: Never Smokeless Tobacco: Never Alcohol Use Standard Drinks/Week Comments Never 0 (1 standard drink = 0.6 oz pur e alcohol) PHQ-2 Answer Date Recorded Patient Health Questionnaire-2 Score 2 11/09/2024 Comments No Sex and Gender Information Value Date Recorded Sex Assigned at Female 07/21/2024 11:09 AM TRIPLE VALVE TESTER Legal Sex Female 9:55 AM CDT Gender Identity Female 09/05/2021 11:16 AM TRIPLE VALVE TESTER Sexual Orientation Straight 09/05/2021 11 :16 AM TRIPLE VALVE TESTER documented as of this encounter Plan of Treatment Upcoming Encounters Date Type Department Care Team ([facility] Contact Info) Description 01/19/2025 8:45 AM CDT Office Visit [facility] [address] Christian Talbot MD [facility] [address] [place] [address] 02/03/2025 10:00 AM CDT Laboratory Only [facility] [address] [place] [address], [place] [address] Deepika Connors MD [address] [place], [place] [id number] 02/10/2025 10:00 AM CDT Office Visit [facility] [place] [id number] [place] [address] Deepika Connors MD [facility] [place], [place] [id number] 06/04/2025 9:00 AM TRIPLE VALVE TESTER Office Visit [facility] [address] [facility] [address] [place] [address] Kelvin Domínguez MD [address] [facility] [address] [place] [address] documented as of this encounter Procedures Procedure Name Priority Date/Time Associated Diagnosis Comments CT GENERIC 12/09/2024 CT GENERIC 12/09/2024 ULTRASOUND GENERIC (SCAN ORDER) 12/09/2024 documented in this encounter Results * ULTRASOUND GENERIC (SCAN ORDER) (12/09/2024) Anatomical Region Laterality Modality Other 12/09/2024 [facility] Scanned SCANNING Final Resu lt * CT GENERIC (12/09/2024) Anatomical Region Laterality Modality Other 12/09/2024 [facility] Scanned SCANNING Final Resu lt * CT GENERIC (12/09/2024) Anatomical Region Laterality Modality Other 12/09/2024 [facility] Scanned SCANNING Final Resu lt documented in this encounter Visit Diagnoses Not on filedocumented in this encounter Additional Health Concerns Assessment Noted Time PHQ-9 Depression Total Score: 7 11/10/19 25 10:24 AM CDT documented as of this encounter Care Teams Clinical Program Coordinator Relationship Specialty Start Date End Date Deepika Connors MD [address] [place] [address] PCP - General FAMILY PRACTICE 01/09/18 Christian Talbot [facility] [address] [place] [address] Yasir Student Officer CARDIOVASCULAR DISEASE 01/09/18 documented as of this encounter
--- NOTE | 2024-12-17 13:39 | CY_PTH ---
PATIENT: Maxx Hou LOC: [facility] U#:[id number] AGE/SX: 69/F ROOM: RE12/17/[address]: Melchor Mandujano MD : [id number] BED: DIS: 12/17/2024 SPEC #: [id number] RECD: 12/17/24 13:49 STATUS: KILO REQ #: [id number] JOSE MIGUEL: 12/17/24 13:[address]: Melchor Mandujano DEPT: [facility] Cytology RECD BY: Christie Wang Tissues: A - FNA Thyroid B - FNA Thyroid Procedures: Hematoxylin and Eosin Stain Cell Block Fine Needle Aspiration Evaluation Fna Additional Pass Fine Needle Aspiration Pathologist
== END 2024-12-17 12:44 | disposition home or self-care (01) ==
PROVIDERS: Visit Provider Internal Medicine
DX: E04.2 Nontoxic multinodular goiter (principal)
CPT/HCPCS: 10005; 10006; 88172; 88173; 88177; 88305